=== PATIENT | female | born 1960 | race Caucasian/White ===

== ENCOUNTER 2018-09-28 14:34 | Emergency (ER) | payer BC ==
[2018-09-28] MEDS ORDERED: SODIUM CHLORIDE 0.9% 1,000 ML IV STA ×2 (15:12)
[2018-09-28] MEDS ORDERED: KETOROLAC 30 MG/ML 1 ML VIAL IVP STA (15:12)
--- NOTE | 2018-09-28 15:22 | ED ---
Back Pain HPI - General Chief Complaint: Back Pain/Injury Stated Complaint: Back pain Time Seen by Provider: 09/28/18 14:38 Source: patient, RN notes reviewed, old records reviewed Limitations: no limitations - History of Present Illness Initial Comments: This is a 58-year-old female who presents emergency department today with complaints of right-sided back pain for the past 2 days. Patient reports that she's had no fevers or chills. She does report she's had some nausea. Patient states the pain radiates from her right shoulder towards her neck and mid back. 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 She denies any cough. - Related Data Home Medications Medication Instructions Recorded Confirmed Atorvastatin Calcium [Lipitor] 20 mg PO HS 09/28/18 09/28/18 Dapagliflozin Propanediol [Farxiga] 10 mg PO DAILY 09/28/18 09/28/18 Lisinopril [Zestril] 10 mg PO DAILY 09/28/18 09/28/18 Prolastin C(Unknown Dose) 1 dose IV TH 09/28/18 Venlafaxine HCl ER [Effexor Xr] 75 mg PO DAILY 09/28/18 09/28/18 Xolair(Unknown Dose) 1 dose SQ Q14D 09/28/18 metFORMIN HCL 850 mg PO DAILY 09/28/18 09/28/18 Previous Rx's Medication Instructions Recorded Cyclobenzaprine [Flexeril] 10 mg PO TID #12 tab 09/28/18 Allergies Allergy/AdvReac Type Severity Reaction Status Date / Time No Known Allergies Allergy Verified 09/28/18 16:13 Review of Systems ROS Statement: Those systems with pertinent positive or pertinent negative responses have been documented in the HPI. ROS Other: All systems not noted in ROS Statement are negative. Past Medical History Past Medical History: Diabetes Mellitus, Hypertension Additional Past Medical History / Comment(s): MURMUR History of Any Multi-Drug Resistant Organisms: None Reported Past Surgical History: Appendectomy Past Anesthesia/Blood Transfusion Reactions: No Reported Reaction Past Psychological History: No Psychological Hx Reported Smoking Status: Never smoker Past Alcohol Use History: None Reported Past Drug Use History: None Reported - Past Family History Father Family Medical History: Cancer, Chest Pain / Angina, Hypertension, Prostate Disorder Additional Family Medical History / Comment(s): DAD IS AGE 74 HAS PROSTATE Mother Family Medical History: Diabetes Mellitus, Renal Disease Additional Family Medical History / Comment(s): AGE 74 HAS STAGE 4 KIDNEY DISEASE General Exam - General Exam Comments Initial Comments: Patient is a 58-year-old female. Alert and oriented 3. No significant distress. Limitations: no limitations General appearance: alert, in no apparent distress Head exam: Present: atraumatic, normocephalic, normal inspection Eye exam: Present: normal appearance, PERRL, EOMI. Absent: scleral icterus, conjunctival injection, periorbital swelling ENT exam: Present: normal exam, mucous membranes moist Neck exam: Present: normal inspection Respiratory exam: Present: normal lung sounds bilaterally. Absent: respiratory distress, wheezes, rales, rhonchi, stridor Cardiovascular Exam: Present: regular rate, normal rhythm, normal heart sounds. Absent: systolic murmur, diastolic murmur, rubs, gallop, clicks GI/Abdominal exam: Present: soft, tenderness (minimal epigastric tenderness), normal bowel sounds. Absent: distended, guarding, rebound, rigid Extremities exam: Present: normal inspection, full ROM, normal capillary refill. Absent: tenderness, pedal edema, joint swelling, calf tenderness Back exam: Present: normal inspection, tenderness (Epigastric tenderness to his right upper quadrant.) Neurological exam: Present: alert, oriented X3, CN II-XII intact Psychiatric exam: Present: normal affect, normal mood Skin exam: Present: warm, dry, intact, normal color. Absent: rash Course Vital Signs 09/28/18 09/28/18 09/28/18 14:35 14:56 16:44 Temperature 97.9 F 98.3 F Pulse Rate 75 64 Respiratory 18 16 18 Rate Blood Pressure 154/80 142/83 O2 Sat by Pulse 96 99 Oximetry Medical Decision Making - Medical Decision Making Patient is a 58-year-old female who presents emergency Department with right- sided back pain, chest wall discomfort she describes as pleuritic in nature. Vital signs are stable. She has had history of also 1 trypsin deficiency. She denies any coughing or significant shortness of breath. Pain does seem to be worse with movement. Patient also complains nausea with discuss concern for gallbladder disease. Patient's labwork was reviewed and unremarkable. Patient's lab work showed a normal d-dimer and normal troponin EKG was unre markable. Patient has normal chest x-ray. I discussed the patient's likely muscular skeletal nature at this time. Patient's case discussed with Dr. Keller. Patient will be discharged at this time. Discussed discussed strict return parameters and close PCP follow-up. - Lab Data Result diagrams: 09/28/18 15:30 09/28/18 15:30 Lab Results 09/28/18 09/28/18 09/28/18 Range/Units 15:00 15:30 15:30 WBC 9.7 (3.8-10.6) k/uL RBC 5.02 (3.80-5.40) m/uL Hgb 14.3 (11.4-16.0) gm/dL Hct 43.1 (34.0-46.0) % MCV 85.8 (80.0-100.0) fL MCH 28.6 (25.0-35.0) pg MCHC 33.3 (31.0-37.0) g/dL RDW 13.5 (11.5-15.5) % Plt Count 269 (150-450) k/uL Neutrophils % 56 % Lymphocytes % 35 % Monocytes % 5 % Eosinophils % 2 % Basophils % 1 % Neutrophils # 5.4 (1.3-7.7) k/uL Lymphocytes # 3.4 (1.0-4.8) k/uL Monocytes # 0.5 (0-1.0) k/uL Eosinophils # 0.2 (0-0.7) k/uL Basophils # 0.1 (0-0.2) k/uL PT (9.0-12.0) sec INR (<1.2) APTT (22.0-30.0) sec D-Dimer (<0.60) mg/L FEU Sodium 139 (137-145) mmol/L Potassium 3.6 (3.5-5.1) mmol/L Chloride 104 (98-107) mmol/L Carbon Dioxide 25 (22-30) mmol/L Anion Gap 10 mmol/L BUN 14 (7-17) mg/dL Creatinine 0.51 L (0.52-1.04) mg/dL Est GFR (CKD-EPI)AfAm >90 (>60 ml/min/1.73 sqM) Est GFR (CKD-EPI)NonAf >90 (>60 ml/min/1.73 sqM) Glucose 227 H (74-99) mg/dL Calcium 9.5 (8.4-10.2) mg/dL Magnesium 2.0 (1.6-2.3) mg/dL Total Bilirubin 0.3 (0.2-1.3) mg/dL AST 23 (14-36) U/L ALT 30 (9-52) U/L Alkaline Phosphatase 107 (38-126) U/L Troponin I (0.000-0.034) ng/mL Total Protein 6.7 (6.3-8.2) g/dL Albumin 3.8 (3.5-5.0) g/dL Urine Color Light Yellow Urine Appearance Clear (Clear) Urine pH 5.0 (5.0-8.0) Ur Specific Norman 1.039 H (1.001-1.035) Urine Protein Negative (Negative) Urine Glucose (UA) 4+ H (Negative) Urine Ketones Negative (Negative) Urine Blood Negative (Negative) Urine Nitrite Negative (Negative) Urine Bilirubin Negative (Negative) Urine Urobilinogen <2.0 (<2.0) mg/dL Ur Leukocyte Esterase Negative (Negative) 09/28/18 09/28/18 Range/Units 15:30 15:30 WBC (3.8-10.6) k/uL RBC (3.80-5.40) m/uL Hgb (11.4-16.0) gm/dL Hct (34.0-46.0) % MCV (80.0-100.0) fL MCH (25.0-35.0) pg MCHC (31.0-37.0) g/dL RDW (11.5-15.5) % Plt Count (150-450) k/uL Neutrophils % % Lymphocytes % % Monocytes % % Eosinophils % % Basophils % % Neutrophils # (1.3-7.7) k/uL Lymphocytes # (1.0-4.8) k/uL Monocytes # (0-1.0) k/uL Eosinophils # (0-0.7) k/uL Basophils # (0-0.2) k/uL PT 10.4 (9.0-12.0) sec INR 1.0 (<1.2) APTT 23.5 (22.0-30.0) sec D-Dimer 0.28 (<0.60) mg/L FEU Sodium (137-145) mmol/L Potassium (3.5-5.1) mmol/L Chloride (98-107) mmol/L Carbon Dioxide (22-30) mmol/L Anion Gap mmol/L BUN (7-17) mg/dL Creatinine (0.52-1.04) mg/dL Est GFR (CKD-EPI)AfAm (>60 ml/min/1.73 sqM) Est GFR (CKD-EPI)NonAf (>60 ml/min/1.73 sqM) Glucose (74-99) mg/dL Calcium (8.4-10.2) mg/dL Magnesium (1.6-2.3) mg/dL Total Bilirubin (0.2-1.3) mg/dL AST (14-36) U/L ALT (9-52) U/L Alkaline Phosphatase (38-126) U/L Troponin I <0.012 (0.000-0.034) ng/mL Total Protein (6.3-8.2) g/dL Albumin (3.5-5.0) g/dL Urine Color Urine Appearance (Clear) Urine pH (5.0-8.0) Ur Specific Norman (1.001-1.035) Urine Protein (Negative) Urine Glucose (UA) (Negative) Urine Ketones (Negative) Urine Blood (Negative) Urine Nitrite (Negative) Urine Bilirubin (Negative) Urine Urobilinogen (<2.0) mg/dL Ur Leukocyte Esterase (Negative) EKG performed at 1541 shows normal sinus rhythm normal EKG. Ventricular rate of up is per minute. [place] interval is 1:30 milliseconds. QRS duration is 94 ms. QT QTC 418 ms. No evidence of ST elevation. 09/28/18 16:01 - Radiology Data Radiology results: report reviewed Chest x-ray is negative for any acute cardio primary process. No change from prior. Disposition Clinical Impression: Right-sided back pain, Pleurisy Disposition: HOME SELF-CARE Condition: Good Instructions (If sedation given, give patient instructions): Pleurisy (ED) Additional Instructions: Patient advised to a take Motrin Tylenol for pain. He continues muscle relaxers prescribed as well. Return to the emergency department if any alarming signs or symptoms occur. Prescriptions: Cyclobenzaprine [Flexeril] 10 mg PO TID #12 tab Is patient prescribed a controlled substance at d/c from ED?: No Referrals: Stephany Kaur MD [Primary Care Provider] - 1-2 days Time of Disposition: 16:56
[2018-09-28 15:41] LABS: Basophils # (A) 0.1 k/uL (0-0.2); Basophils % (A) 1 %; Eosinophils # (A) 0.2 k/uL (0-0.7); Eosinophils % (A) 2 %; HCT 43.1 % (34.0-46.0); HGB 14.3 gm/dL (11.4-16.0); Lymphocytes # (A) 3.4 k/uL (1.0-4.8); Lymphocytes % (A) 35 %; MCH 28.6 pg (25.0-35.0); MCHC 33.3 g/dL (31.0-37.0); MCV 85.8 fL (80.0-100.0); Monocytes # (A) 0.5 k/uL (0-1.0); Monocytes % (A) 5 %; Neutrophils # (A) 5.4 k/uL (1.3-7.7); Neutrophils % (A) 56 %; Platelet Count 269 k/uL (150-450); RBC 5.02 m/uL (3.80-5.40); RDW 13.5 % (11.5-15.5); WBC 9.7 k/uL (3.8-10.6)
[2018-09-28 15:50] LABS: Appearance,Urine Clear (Clear); Bilirubin,Urine Negative (Negative); Blood,Urine Negative (Negative); Color,Urine Light Yellow; Glucose,Urine (UA) 4+ (Negative); Ketones,Urine Negative (Negative); Leukocyte Esterase,Urine Negative (Negative); Nitrite,Urine Negative (Negative); Protein,Urine Negative (Negative); Specific Gravity,Urine 1.039 (1.001-1.035); Urobilinogen,Urine <2.0 mg/dL (<2.0)
--- NOTE | 2018-09-28 15:52 | XR ---
EXAMINATION TYPE: XR chest 2V DATE OF EXAM: 09/28/2018 COMPARISON: Chest x-ray December 22, 2013 HISTORY: Chest and back pain. TECHNIQUE: Frontal and lateral views of the chest are obtained. FINDINGS: Overlying EKG leads are present. There is no focal air space opacity, pleural effusion, or pneumothorax seen. The cardiac silhouette size is within normal limits. Multilevel spurring of thora cic spine is redemonstrated. IMPRESSION: No acute cardiopulmonary process. No significant change from prior.
[2018-09-28 15:53] LABS: ALT 30 U/L (9-52); AST 23 U/L (14-36); African American GFR (CKD) >90 (>60 ml/min/1.73 sqM); Albumin 3.8 g/dL (3.5-5.0); Alkaline Phosphatase 107 U/L (38-126); Anion Gap 10 mmol/L; Blood Urea Nitrogen 14 mg/dL (7-17); Calcium 9.5 mg/dL (8.4-10.2); Carbon Dioxide 25 mmol/L (22-30); Chloride 104 mmol/L (98-107); D-Dimer 0.28 mg/L FEU (<0.60); Glucose 227 mg/dL (74-99); Sodium 139 mmol/L (137-145); Total Bilirubin 0.3 mg/dL (0.2-1.3); Total Protein 6.7 g/dL (6.3-8.2)
[2018-09-28 15:54] LABS: Partial Thromboplastin Time 23.5 sec (22.0-30.0); Prothrombin Time 10.4 sec (9.0-12.0)
[2018-09-28 16:07] LABS: Potassium 3.6 mmol/L (3.5-5.1)
[2018-09-28 16:45] VITALS: BP 142/83; PULSE 64; RESP 18; TEMP 98.3
== END 2018-09-28 17:07 | disposition home or self-care (01) ==
LOC: EC 14:34
DX: M54.9 Dorsalgia, unspecified (principal); R09.1 Pleurisy; R11.0 Nausea; R10.816 Epigastric abdominal tenderness; R10.811 Right upper quadrant abdominal tenderness; E11.9 Type 2 diabetes mellitus without complications; I10 Essential (primary) hypertension; Z79.84 Long term (current) use of oral hypoglycemic drugs; Z79.899 Other long term (current) drug therapy
CPT/HCPCS: 36415; 93005; 85379; 80053; 83735; 84484; 85025; 85610; 85730; 81003; 71046; 99284; 96374; 96361; J1885

== ENCOUNTER → 2019-02-22 | Outpatient (CLI) | payer BC ==
--- NOTE | 2019-02-25 10:46 | MM ---
Reason for exam: screening (asymptomatic). Last mammogram was performed 5 years and 7 months ago. History: Patient is postmenopausal. Family history of breast cancer in maternal aunt at age 45. Physical Findings: A clinical breast exam by your physician is recommended on an annual basis and results should be correlated with mammographic findings. MG Screening Mammo w CAD Bilateral CC, MLO, and XCCL view(s) were taken. Prior study comparison: July 16, 2013, bilateral MG screening mammo w CAD. June 15, 2012, bilateral digital screening mammo w/CAD. The breast tissue is heterogeneously dense. This may lower the sensitivity of mammography. There are benign appearing round dystrophic calcifications bilaterally. New group of indeterminate calcifications left inner lower quadrant. Nodularity in the left breast. Focal asymmetry right outer middle depth. ASSESSMENT: Incomplete: need additional imaging evaluation, BI-RAD 0 RECOMMENDATION: Special view mammogram of both breasts. If lesion persists on supplemental views, image directed ultrasound is recommended. [facility] will attempt to contact patient to return for supplemental views and ultrasound if indicated.
== END | disposition home or self-care (01) ==
LOC: RADMAMWWP 15:40
PROVIDERS: ATTEND Internal Medicine
DX: Z12.31 Encounter for screening mammogram for malignant neoplasm of breast (principal)
CPT/HCPCS: 77067

== ENCOUNTER → 2019-03-15 | Outpatient (CLI) | payer BC ==
--- NOTE | 2019-03-16 10:02 | MM ---
Reason for exam: additional evaluation requested from abnormal screening. Last mammogram was performed 1 month ago. History: Patient is postmenopausal. Family history of breast cancer in maternal aunt at age 45. Physical Findings: Nurse Summary: 1cm nodule in the right breast at 3 o'clock (nurse TM). MG Work Up Mamm w CAD BILAT Bilateral spot compression CC and ML view(s) were taken. Spot compression MLO, CC with magnification, and MLO with magnification view(s) were taken of the left breast. Prior study comparison: February 22, 2019, bilateral MG screening mammo w CAD. July 16, 2013, bilateral MG screening mammo w CAD. The breast tissue is heterogeneously dense. This may lower the sensitivity of mammography. Right: no persistent nodule. Left: no suspicious calcifications. Left inner lower 7 o'clock 9.6cm from nipple and 12 'clock 6cm from nipple. These results were verbally communicated with the patient and result sheet given to the patient on 03/15/19. ASSESSMENT: Incomplete: need additional imaging evaluation, BI-RAD 0 RECOMMENDATION: Ultrasound of both breasts. Manage patient on a clinical basis.
--- NOTE | 2019-03-16 10:04 | USB ---
Reason for exam: additional evaluation requested from abnormal screening. History: Patient is postmenopausal. Family history of breast cancer in maternal aunt at age 45. US Breast Workup Limited SARBJIT Left limited breast ultrasound including focal area of concern, retroareolar and axilla demonstrates a 0.4 x 0.3 x 0.5cm round, hypoechoic lesion at 7 o'clock, 6 month follow up. These results were verbally communicated with the patient and result sheet given to the patient on 03/15/19. ASSESSMENT: Probably benign, BI-RAD 3 RECOMMENDATION: Ultrasound of the left breast in 6 months.
== END | disposition home or self-care (01) ==
LOC: RADMAMWWP 13:26
PROVIDERS: ATTEND Internal Medicine
DX: R92.8 Other abnormal and inconclusive findings on diagnostic imaging of breast (principal)
CPT/HCPCS: 77066

== ENCOUNTER → 2019-09-23 | Outpatient (CLI) | payer BC ==
--- NOTE | 2019-09-24 10:02 | USB ---
Reason for exam: follow-up at short interval from prior study. History: Patient is postmenopausal. Family history of breast cancer in maternal aunt at age 45. Physical Findings: Nurse did not find any significant physical abnormalities on exam. US Breast Limited LT Left limited breast ultrasound including focal area of concern, retroareolar and axilla demonstrates a 0.4 x 0.4 x 0.4cm round, hypoechoic lesion at 7 o'clock. These results were verbally communicated with the patient and result sheet given to the patient on 09/23/19. ASSESSMENT: Probably benign, BI-RAD 3 RECOMMENDATION: Follow-up diagnostic mammogram of both breasts in 5 months. Back on schedule for January 2020. Ultrasound of the left breast in 5 months.
== END | disposition home or self-care (01) ==
LOC: RADUSWWP 08:16
PROVIDERS: ATTEND Internal Medicine
DX: R92.8 Other abnormal and inconclusive findings on diagnostic imaging of breast (principal)

== ENCOUNTER → 2020-02-22 | Outpatient (CLI) | payer BC ==
--- NOTE | 2020-02-22 08:53 | MM ---
Reason for exam: follow-up at short interval from prior study. Last mammogram was performed 11 months ago. History: Patient is postmenopausal. Family history of breast cancer in maternal aunt at age 45. Physical Findings: Nurse did not find any significant physical abnormalities on exam. MG 3D Diag Mammo W/Cad SARBJIT Bilateral CC and MLO view(s) were taken. Prior study comparison: March 15, 2019, bilateral MG work up mamm w CAD BILAT. February 22, 2019, bilateral MG screening mammo w CAD. The breast tissue is heterogeneously dense. This may lower the sensitivity of mammography. Finding: There are stable, course grouped/clustered calcifications in both breasts. No significant changes in finding since February 22, 2019. These results were verbally communicated with the patient and result sheet given to the patient on 02/22/20. ASSESSMENT: Benign, BI-RAD 2 RECOMMENDATION: Routine screening mammogram of both breasts in 1 year.
--- NOTE | 2020-02-22 08:55 | USB ---
Reason for exam: follow-up at short interval from prior study. History: Patient is postmenopausal. Family history of breast cancer in maternal aunt at age 45. US Breast Limited LT Left limited breast ultrasound including focal area of concern, retroareolar and axilla demonstrates a 0.4 x 0.4 x 0.4cm oval, complex, cystic lesion at 7 o'clock correlates with prior 7 o'clock and a 0.6 x 0.7 x 0.4cm oval, hyperechoic, solid lipoma at 9 o'clock. These results were verbally communicated with the patient and result sheet given to the patient on 02/22/20. ASSESSMENT: Benign, BI-RAD 2 RECOMMENDATION: Routine screening mammogram of both breasts in 1 year.
== END | disposition home or self-care (01) ==
LOC: RADMAMWWP 06:56
PROVIDERS: ATTEND Internal Medicine
DX: R92.8 Other abnormal and inconclusive findings on diagnostic imaging of breast (principal)
CPT/HCPCS: 77062; 77066

== ENCOUNTER → 2022-03-14 | Outpatient (CLI) | payer BC ==
--- NOTE | 2022-03-17 18:29 | MM ---
Reason for Exam: Screening (asymptomatic). Last screening mammogram was performed 12 month(s) ago. Patient History: Menarche at age 11. First Full-Term at age 20. Postmenopausal. Maternal aunt had breast cancer, age 45. Risk Values: Kyra 5 year model risk: 1.4%. NCI Lifetime model risk: 6.2%. Prior Study Comparison: 03/15/2019 Bilateral Diagnostic Mammogram, [facility]. 02/22/2020 Bilateral Diagnostic Mammogram, [facility]. 02/28/2021 Bilateral Screening Mammogram, [facility]. Tissue Density: The breast tissue is heterogeneously dense. This may lower the sensitivity of mammography. Findings: Analyzed By CAD. There is heterogeneous calcifications are unchanged on both sides. Areas of asymmetric density are also unchanged. There is no suspicious group of microcalcifications or new suspicious mass in either breast. Overall Assessment: Benign, BI-RAD 2 Management: Screening Mammogram of both breasts in 1 year. 1. Patient should continue monthly self breast exams. 2. A clinical breast exam by your physician is recommended on an annual basis. 3. This exam should not preclude additional follow-up of suspicious palpable abnormalities. Electronically signed and approved by: Hal Gill M.D. Radiologist
== END | disposition home or self-care (01) ==
LOC: RADMAMWWP 15:05
PROVIDERS: ATTEND Internal Medicine
DX: Z12.31 Encounter for screening mammogram for malignant neoplasm of breast (principal); Z80.3 Family history of malignant neoplasm of breast; Z78.0 Asymptomatic menopausal state
CPT/HCPCS: 77063; 77067

== ENCOUNTER 2023-02-21 18:21 | Inpatient (IN) | payer BC, OTHER ==
[2023-02-21] MEDS ORDERED: SODIUM CHLORIDE 0.9% 1,000 ML IV STA (18:50)
[2023-02-21] MEDS ORDERED: HYDROmorphone 1 MG/ML 1 ML SYRINGE IVP STA ×2 (18:51→19:24)
--- NOTE | 2023-02-21 18:51 | ED ---
Fall HPI - General Chief Complaint: Fall Stated Complaint: Fall, left hip pain Time Seen by Provider: 02/21/23 18:47 Source: EMS, RN notes reviewed, old records reviewed Mode of arrival: EMS Limitations: no limitations - History of Present Illness Initial Comments: This is a 62-year-old female to the emergency department for evaluation. Patient resents emergency department for evaluation regards to fall fall from diabetes high blood pressure patient's severe left hip fracture. 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, by family Place Fall Occurred: home Loss of Consciousness: none Prolonged Down Time?: no Symptoms Prior to Fall: none Severity: moderate Severity scale (1-10): 4 Quality: burning Context: tripped/slipped Associated Symptoms: denies - Related Data Home Medications Medication Instructions Recorded Confirmed Albuterol Inhaler [Ventolin Hfa 1 - 2 puff INHALATION RT-Q6H PRN 02/21/23 02/21/23 Inhaler] EPINEPHrine (Auto Inject) [Epipen] 0.3 mg IM ONCE PRN 02/21/23 02/21/23 Escitalopram [Lexapro] 10 mg PO DAILY 02/21/23 02/21/23 Omalizumab [Xolair] 75 mg SQ Q14D 02/21/23 02/21/23 Omalizumab [Xolair] 150 mg SQ Q14D 02/21/23 02/21/23 Pioglitazone [Actos] 45 mg PO DAILY 02/21/23 02/21/23 Prolastin-C 1,000 Mg (+-)/20 Ml 1 dose IV WE 02/21/23 02/21/23 Solution Tirzepatide [Mounjaro] 7.5 mg SQ RAE 02/21/23 02/21/23 Previous Rx's Medication Instructions Recorded Aspirin [Adult Low Dose Aspirin EC] 81 mg PO BID #1 tab 02/24/23 HYDROcodone/APAP 7.5-325MG [[place] 1 - 2 tab PO Q6HR PRN #32 tab 02/24/23 7.5-325] Sennosides-Docusate Sodium 1 tab PO BID #60 tablet 02/24/23 [Senokot-S] diazePAM [Valium] 2 mg PO Q8HR PRN #12 tab 02/24/23 Allergies Allergy/AdvReac Type Severity Reaction Status Date / Time No Known Allergies Allergy Verified 02/22/23 13:16 Review of Systems ROS Statement: Those systems with pertinent positive or pertinent negative responses have been documented in the HPI. ROS Other: All systems not noted in ROS Statement are negative. Past Medical History Past Medical History: Diabetes Mellitus, Hypertension Additional Past Medical History / Comment(s): MURMUR, alpha 1 anti tripsid History of Any Multi-Drug Resistant Organisms: None Reported Past Surgical History: Appendectomy Past Anesthesia/Blood Transfusion Reactions: No Reported Reaction Past Psychological History: No Psychological Hx Reported Smoking Status: Never smoker Past Alcohol Use History: Rare Past Drug Use History: None Reported - Past Family History Father Family Medical History: Cancer, Chest Pain / Angina, Hypertension, Prostate Disorder Additional Family Medical History / Comment(s): DAD IS AGE 74 HAS PROSTATE Mother Family Medical History: Diabetes Mellitus, Renal Disease Additional Family Medical History / Comment(s): AGE 74 HAS STAGE 4 KIDNEY DISEASE General Exam Limitations: no limitations General appearance: alert, anxious, in distress, obese Head exam: Present: atraumatic, normocephalic, normal inspection Eye exam: Present: normal appearance, PERRL, EOMI. Absent: scleral icterus, conjunctival injection, periorbital swelling ENT exam: Present: normal exam, mucous membranes moist Neck exam: Present: normal inspection. Absent: tenderness, meningismus, lymphadenopathy Respiratory exam: Present: normal lung sounds bilaterally. Absent: respiratory distress, wheezes, rales, rhonchi, stridor Cardiovascular Exam: Present: regular rate, normal rhythm, normal heart sounds. Absent: systolic murmur, diastolic murmur, rubs, gallop, clicks GI/Abdominal exam: Present: soft, normal bowel sounds. Absent: distended, tenderness, guarding, rebound, rigid Extremities exam: Present: tenderness, normal capillary refill. Absent: full ROM, pedal edema, joint swelling, calf tenderness Back exam: Present: normal inspection, tenderness Neurological exam: Present: alert, oriented X3, CN II-XII intact Psychiatric exam: Present: normal affect, normal mood Skin exam: Present: warm, dry, intact, normal color. Absent: rash Course Vital Signs 02/21/23 02/21/23 02/21/23 18:37 19:00 20:00 Temperature 98.3 F Pulse Rate 65 68 Respiratory 18 15 16 Rate Blood Pressure 137/68 132/50 133/44 O2 Sat by Pulse 97 99 99 Oximetry 02/21/23 02/21/23 02/21/23 20:43 21:30 22:13 Temperature 98.3 F Pulse Rate 64 65 65 Respiratory 16 18 12 Rate Blood Pressure 131/47 127/74 114/56 O2 Sat by Pulse 98 99 99 Oximetry - Reevaluation(s) Reevaluation #1: 02/21/23 21:38 Medical records are reviewed Reevaluation #2: 02/21/23 21:38 Patient is in severe pain here in the emergency department Reevaluation #3: 02/21/23 21:38 Patient family informed of results and questions answered Reevaluation #4: 02/21/23 21:38 Was pt. sent in by a medical professional or institution (, PA, RN LACTATION CONSULTANT, urgent care, hospital, or group home...) When possible be specific @ -no Did you speak to anyone other than the patient for history (EMS, parent, family, police, friend...)? What history was obtained from this source @ -no Did you review nursing and triage notes (agree or disagree)? Why? @ -agree Are old charts reviewed (outside hosp., previous admission, EMS record, old EKG, old radiological studies, urgent care reports/EKG's, group home records)? Report findings @ -yes Differential Diagnosis (chest pain, altered mental status, abdominal pain women, abdominal pain men, vaginal bleeding, weakness, fever, dyspnea, syncope, headache, dizziness, GI bleed, back pain, seizure, CVA, palpatations, mental health, musculoskeletal)? @ -prior EKG interpreted by me (3pts min.). @ -yes X-rays interpreted by me (1pt min.). @ -yes positive for hip fracture CT interpreted by me (1pt min.). @ -no U/S interpreted by me (1pt. min.). @ -no What testing was considered but not performed or refused? (CT, X-rays, U/S, labs)? Why? @ -none What meds were considered but not given or refused? Why? @ -none Did you discuss the management of the patient with other professionals (professionals i.e. , PA, RN LACTATION CONSULTANT, lab, RT, psych nurse, social sciences department chair, yard motor operator, teacher, credit risk officer, lining caser)? Give summary @ -no Was smoking cessation discussed for >3mins.? @ -no Was critical care preformed (if so, how long)? @ -no Were there social determinants of health that impacted care today? How? (Home lessness, low income, unemployed, alcoholism, drug addiction, transportation, low edu. Level, literacy, decrease access to med. care, [facility], rehab)? @ -none Was there de-escalation of care discussed even if they declined (Discuss DNR or withdrawal of care, Hospice)? DNR status @ -no What co-morbidities impacted this encounter? (DM, HTN, Smoking, COPD, CAD, Cancer, CVA, ARF, Chemo, Hep., AIDS, mental health diagnosis, sleep apnea, morbid obesity)? @ -none Was patient admitted / discharged? Hospital course, mention meds given and route, prescriptions, significant lab abnormalities, going to OR and other pertinent info. @ - 62 female to the emergency department for evaluation of a fall with hip fracture. Patient be admitted for surgical evaluation Admitted Undiagnosed new problem with uncertain prognosis? @ -no Drug Therapy requiring intensive monitoring for toxicity (Heparin, Nitro, I nsulin, Cardizem)? @ -no Were any procedures done? @ -no Diagnosis/symptom? @ -Hip fracture and fall Acute, or Chronic, or Acute on Chronic? @ -Acute Uncomplicated (without systemic symptoms) or Complicated (systemic symptoms)? @ -Complicated Side effects of treatment? @ -no Exacerbation, Progression, or Severe Exacerbation? @ -exacerbation Poses a threat to life or bodily function? How? (Chest pain, [place], VA, pneumonia, PE, COPD, DKA, ARF, appy, cholecystitis, CVA, Diverticulitis, Homicidal, Suicidal, threat to staff... and all critical care pts) @ -yes need for surgery for hip fracture with fall - Consultations Consultation #1: Spoke with Dr. Sagastume orthopedics who will see patient Medical Decision Making - Medical Decision Making 62 female to the emergency department for evaluation of a fall with hip fracture. Patient be admitted for surgical evaluation - Lab Data Result diagrams: 02/24/23 16:31 02/21/23 20:16 Lab Results 02/21/23 02/21/23 02/21/23 Range/Units 18:54 18:54 18:54 WBC 11.3 H (3.8-10.6) k/uL RBC 4.45 (3.80-5.40) m/uL Hgb 13.5 (11.4-16.0) gm/dL Hct 39.2 (34.0-46.0) % MCV 88.2 (80.0-100.0) fL MCH 30.3 (25.0-35.0) pg MCHC 34.4 (31.0-37.0) g/dL RDW 13.7 (11.5-15.5) % Plt Count 216 (150-450) k/uL MPV 8.0 Neutrophils % 81 % Lymphocytes % 14 % Monocytes % 4 % Eosinophils % 0 % Basophils % 0 % Neutrophils # 9.2 H (1.3-7.7) k/uL Lymphocytes # 1.6 (1.0-4.8) k/uL Monocytes # 0.4 (0-1.0) k/uL Eosinophils # 0.0 (0-0.7) k/uL Basophils # 0.0 (0-0.2) k/uL PT 11.2 (10.0-12.5) sec INR 1.0 (<1.2) APTT 21.1 L (22.0-30.0) sec Sodium (137-145) mmol/L Potassium (3.5-5.1) mmol/L Chloride (98-107) mmol/L Carbon Dioxide (22-30) mmol/L Anion Gap mmol/L BUN (7-17) mg/dL Creatinine (0.52-1.04) mg/dL Est GFR (CKD-EPI)AfAm (>60 ml/min/1.73 sqM) Est GFR (CKD-EPI)NonAf (>60 ml/min/1.73 sqM) Glucose (74-99) mg/dL Calcium (8.4-10.2) mg/dL Phosphorus (2.5-4.5) mg/dL Magnesium (1.6-2.3) mg/dL Total Bilirubin (0.2-1.3) mg/dL AST (14-36) U/L ALT (4-34) U/L Alkaline Phosphatase (38-126) U/L Troponin I <0.012 (0.000-0.034) ng/mL Total Protein (6.3-8.2) g/dL Albumin (3.5-5.0) g/dL 02/21/23 Range/Units 20:16 WBC (3.8-10.6) k/uL RBC (3.80-5.40) m/uL Hgb (11.4-16.0) gm/dL Hct (34.0-46.0) % MCV (80.0-100.0) fL MCH (25.0-35.0) pg MCHC (31.0-37.0) g/dL RDW (11.5-15.5) % Plt Count (150-450) k/uL MPV Neutrophils % % Lymphocytes % % Monocytes % % Eosinophils % % Basophils % % Neutrophils # (1.3-7.7) k/uL Lymphocytes # (1.0-4.8) k/uL Monocytes # (0-1.0) k/uL Eosinophils # (0-0.7) k/uL Basophils # (0-0.2) k/uL PT (10.0-12.5) sec INR (<1.2) APTT (22.0-30.0) sec Sodium 140 (137-145) mmol/L Potassium 3.6 (3.5-5.1) mmol/L Chloride 104 (98-107) mmol/L Carbon Dioxide 25 (22-30) mmol/L Anion Gap 11 mmol/L BUN 17 (7-17) mg/dL Creatinine 0.58 (0.52-1.04) mg/dL Est GFR (CKD-EPI)AfAm >90 (>60 ml/min/1.73 sqM) Est GFR (CKD-EPI)NonAf >90 (>60 ml/min/1.73 sqM) Glucose 177 H (74-99) mg/dL Calcium 8.7 (8.4-10.2) mg/dL Phosphorus 3.3 (2.5-4.5) mg/dL Magnesium 1.8 (1.6-2.3) mg/dL Total Bilirubin 0.5 (0.2-1.3) mg/dL AST 35 (14-36) U/L ALT 22 (4-34) U/L Alkaline Phosphatase 104 (38-126) U/L Troponin I (0.000-0.034) ng/mL Total Protein 6.8 (6.3-8.2) g/dL Albumin 3.7 (3.5-5.0) g/dL - EKG Data -: EKG Interpreted by Me (EKG is sinus 66 NH 162 QRS 96 QTc 431) - Radiology Data Radiology results: report reviewed (Chest x-ray x-ray pelvis positive left hip fracture), image reviewed Disposition Clinical Impression: Fall, Closed left hip fracture Disposition: ADMITTED IP TO THIS HOSP Condition: Stable Is patient prescribed a controlled substance at d/c from ED?: No Time of Disposition: 21:30
--- NOTE | 2023-02-21 20:15 | XR ---
EXAMINATION TYPE: XR Hip LT and AP Pelvis DATE OF EXAM: 02/21/2023 7:53 PM CLINICAL INDICATION:Female, 62 years old with history of fall; COMPARISON: None. TECHNIQUE: XR Hip LT and AP Pelvis; hip was examined in the frontal and lateral projections and a AP pelvis. FINDINGS/IMPRESSION: Comminuted left femur intertrochanteric fracture with displacement. No additional fractures visualize d.
--- NOTE | 2023-02-21 20:15 | XR ---
EXAMINATION TYPE: XR chest 1V DATE OF EXAM: 02/21/2023 7:53 PM CLINICAL INDICATION:Female, 62 years old with history of fall; H COMPARISON: Chest radiographs from TECHNIQUE: XR chest 1V Frontal view of the chest. FINDINGS: Lungs/Pleura: There is no evidence of pleural effusion, focal consolidation, or pneumothorax. Pulmonary vascularity: Unremarkable. Heart/mediastinum: Cardiomediastinal silhouette is unremarkable. Musculoskeletal: No acute osseous pathology. Other findings: None IMPRESSION: No acute cardiopulmonary disease/process.
[2023-02-21 20:39] LABS: Prothrombin Time 11.2 sec (10.0-12.5)
[2023-02-21 20:50] LABS: Partial Thromboplastin Time 21.1 sec (22.0-30.0)
[2023-02-21 21:29] LABS: Basophils % (A) 0 %; Eosinophils % (A) 0 %; HCT 39.2 % (34.0-46.0); HGB 13.5 gm/dL (11.4-16.0); Lymphocytes # (A) 1.6 k/uL (1.0-4.8); Lymphocytes % (A) 14 %; MCH 30.3 pg (25.0-35.0); MCHC 34.4 g/dL (31.0-37.0); MCV 88.2 fL (80.0-100.0); Monocytes # (A) 0.4 k/uL (0-1.0); Monocytes % (A) 4 %; Neutrophils # (A) 9.2 k/uL (1.3-7.7); Neutrophils % (A) 81 %; Platelet Count 216 k/uL (150-450); RBC 4.45 m/uL (3.80-5.40); RDW 13.7 % (11.5-15.5); WBC 11.3 k/uL (3.8-10.6)
[2023-02-21] MEDS ORDERED: ONDANSETRON 4 MG/2 ML VIAL IVP PRN (21:34)
[2023-02-21] MEDS ORDERED: NALOXONE 0.4 MG/ML 1 ML VIAL IV PRN (21:34)
[2023-02-21] MEDS: SODIUM CHLORIDE 0.9% 1,000 ML IV SCH (22:03)
[2023-02-21 22:28] LABS: ALT 22 U/L (4-34); AST 35 U/L (14-36); African American GFR (CKD) >90 (>60 ml/min/1.73 sqM); Albumin 3.7 g/dL (3.5-5.0); Alkaline Phosphatase 104 U/L (38-126); Anion Gap 11 mmol/L; Blood Urea Nitrogen 17 mg/dL (7-17); Calcium 8.7 mg/dL (8.4-10.2); Carbon Dioxide 25 mmol/L (22-30); Chloride 104 mmol/L (98-107); Glucose 177 mg/dL (74-99); Magnesium 1.8 mg/dL (1.6-2.3); Non-African American GFR(CKD) >90 (>60 ml/min/1.73 sqM); Phosphorus 3.3 mg/dL (2.5-4.5); Potassium 3.6 mmol/L (3.5-5.1); Sodium 140 mmol/L (137-145); Total Bilirubin 0.5 mg/dL (0.2-1.3); Total Protein 6.8 g/dL (6.3-8.2)
[2023-02-21] MEDS ORDERED: ALBUTEROL NEBULIZED 2.5 MG/3 ML INHALATION PRN (23:49)
[2023-02-21] MEDS ORDERED: NON FORMULARY DRUG (Epinephrine (Auto Inject) 0.3 MG/0.3 ML Each) IM PRN (23:49)
[2023-02-21] MEDS ORDERED: DEXTROSE 50% SYRINGE 50 ML IVP PRN ×2 (23:50)
[2023-02-22] MEDS: HYDROmorphone 1 MG/ML 1 ML SYRINGE IVP PRN ×5 (01:11→12:30)
[2023-02-22 05:44] LABS: Glucose,Whole Blood 122 mg/dL (70-110)
[2023-02-22] MEDS: INSULIN ASPART (NovoLOG) 100 UNIT/ML VIAL SQ SCH ×4 (05:57→21:09)
[2023-02-22] MEDS: PANTOPRAZOLE 40 MG TABLET PO SCH (08:21)
[2023-02-22] MEDS: PIOGLITAZONE 45 MG TAB PO SCH (08:21)
[2023-02-22] MEDS: LOSARTAN-HCTZ 50-12.5 MG 1 EACH TAB PO SCH (08:22)
[2023-02-22] MEDS: ESCITALOPRAM 10 MG TAB PO SCH (08:22)
--- NOTE | 2023-02-22 09:53 | P.CNOR ---
History of Present Illness - HPI Consult date: 02/22/23 Consult reason: fracture (Left hip) History of present illness: This is a 62-year-old female who slipped by the pool at the [facility] yesterday and sustained injury to her left hip. She was brought to the e mergency department via EMS. On exam and x-ray in the emergency department she is found to have an intertrochanteric fracture of the left hip. She is admitted to our service for surgical intervention and care. She has medical history significant for diabetes and alpha 1 antitrypsin deficiency. She reports no head injury at the time of her fall. She denies headache or neck pain. She denies injury to her upper extremities. Past Medical History Past Medical History: Diabetes Mellitus, Hypertension Additional Past Medical History / Comment(s): MURMUR, alpha 1 anti tripsid History of Any Multi-Drug Resistant Organisms: None Reported Past Surgical History: Appendectomy Past Anesthesia/Blood Transfusion Reactions: No Reported Reaction Past Psychological History: No Psychological Hx Reported Smoking Status: Never smoker Past Alcohol Use History: Rare Past Drug Use History: None Reported - Past Family History Father Family Medical History: Cancer, Chest Pain / Angina, Hypertension, Prostate D isorder Additional Family Medical History / Comment(s): DAD IS AGE 74 HAS PROSTATE Mother Family Medical History: Diabetes Mellitus, Renal Disease Additional Family Medical History / Comment(s): AGE 74 HAS STAGE 4 KIDNEY DISEASE Medications and Allergies Home Medications Medication Instructions Recorded Confirmed Type Albuterol Inhaler [Ventolin Hfa 1 - 2 puff INHALATION RT-Q6H PRN 02/21/23 02/21/23 History Inhaler] EPINEPHrine (Auto Inject) [Epipen] 0.3 mg IM ONCE PRN 02/21/23 02/21/23 History Escitalopram [Lexapro] 10 mg PO DAILY 02/21/23 02/21/23 History Losartan-Hctz 50-12.5 mg [Hyzaar 1 tab PO DAILY 02/21/23 02/21/23 History 50-12.5] Omalizumab [Xolair] 75 mg SQ Q14D 02/21/23 02/21/23 History Omalizumab [Xolair] 150 mg SQ Q14D 02/21/23 02/21/23 History Pioglitazone [Actos] 45 mg PO DAILY 02/21/23 02/21/23 History Prolastin-C 1,000 Mg (+-)/20 Ml 1 dose IV WE 02/21/23 02/21/23 History Solution Tirzepatide [Mounjaro] 7.5 mg SQ RAE 02/21/23 02/21/23 History Allergies Allergy/AdvReac Type Severity Reaction Status Date / Time No Known Allergies Allergy Verified 02/21/23 20:07 Physical Examination Is a pleasant 62-year-old female in no acute distress. She is alert and oriented 3. Her son is present at bedside. Exam of her head neck reveal no obvious deformity. She has full cervical spine motion without difficulty or pain. Exam of the upper extremities reveals no obvious deformity. No areas of swelling or ecchymosis. She freely moves her upper extremities in bed without difficulty or pain. Exam of the lower extremities reveals external rotation to the left leg. Minimal shortening noted. She has full foot and ankle motion bilaterally. Ped al pulses are +1-2/4 bilaterally. Neurovascular status to the lower extremities is intact. Results X-rays of the pelvis and left hip reveal a comminuted intertrochanteric fracture of the left hip. - Labs Labs: Abnormal Lab Results - Last 24 Hours (Table) 02/21/23 02/21/23 02/21/23 Range/Units 18:54 18:54 20:16 WBC 11.3 H (3.8-10.6) k/uL Neutrophils # 9.2 H (1.3-7.7) k/uL APTT 21.1 L (22.0-30.0) sec Glucose 177 H (74-99) mg/dL POC Glucose (mg/dL) (70-110) mg/dL 02/22/23 Range/Units 05:41 WBC (3.8-10.6) k/uL Neutrophils # (1.3-7.7) k/uL APTT (22.0-30.0) sec Glucose (74-99) mg/dL POC Glucose (mg/dL) 122 H (70-110) mg/dL H & H 02/21/23 Range/Units 18:54 Hgb 13.5 (11.4-16.0) gm/dL Hct 39.2 (34.0-46.0) % Coagulation 02/21/23 Range/Units 18:54 INR 1.0 (<1.2) Result Diagrams: 02/21/23 18:54 02/21/23 20:16 Assessment and Plan (1) Closed left hip fracture Current Visit: Yes Status: Acute Code(s): S72.002A - FRACTURE OF UNSP PART OF NECK OF LEFT FEMUR, INIT SNOMED Code(s): 714311296 (2) Fall Current Visit: Yes Status: Acute Code(s): W19.XXXA - UNSPECIFIED FALL, INITIAL ENCOUNTER SNOMED Code(s): 3023147 (3) Diabetes Current Visit: No Status: Chronic Code(s): E11.9 - TYPE 2 DIABETES MELLITUS WITHOUT COMPLICATIONS SNOMED Code(s): 66412540 Plan: The clinical and x-ray findings are discussed with the patient and her family. It is recommended she undergo closed reduction with insertion of intertrochanteric nail of the left hip today. The procedures discussed in detail including the possible risks and outcomes. We discussed the potential need for inpatient rehab postoperatively. After discussion and consideration the patient elects to proceed with surgery.
--- NOTE | 2023-02-22 10:05 | P.CONS ---
History of Present Illness - History of Present Illness This is a pleasant 62 years old female with past medical history of diabetes mellitus, hypertension, heart murmur, alpha-1 antitrypsin deficiency for which she receives weekly infusion and history of emphysema Patient said that she was walking in the portal area which was worse when her feet slipped and fell on her left side followed by severe pain in the left hip area She denies chest pain or dyspnea, she denies coughing, no change in urine or bowel habits, no abdominal pain or vomiting. No weakness numbness or headache or dizziness. She denies smoking alcohol or illicit drug. She states she has history of emphysema and alpha-1 antitrypsin deficiency and she follows up with Dr. Waterman She denies any respiratory symptoms currently. 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 Does not use inhaler. No recent history of cardiac disease or renal disease. Her father has atrial fibrillation No other liver thyroid disease, no history of ulcer disease or GERD She is hemodynamically stable Vitals are unremarkable Labs reviewed she has mild leukocytosis of 11.3, risks of CBC, INR, BMP and liver enzymes were unremarkable Glucose control, troponin negative. Chest x-ray: No acute process, no mass or consolidation. I reviewed the chest x-ray by myself EKG showing normal sinus rhythm at [address]-T changes and QTC 431 left hip xr: intertrochanteric fracture with displacement Review of Systems Review of systems CONSTITUTIONAL: No fever, no malaise, no fatigue. HEENT: No recent visual problems or hearing problems. Denied any sore throat. CARDIOVASCULAR: No orthopnea, PND, no palpitations, no syncope. PULMONARY: No shortness of breath, no cough, no hemoptysis. GASTROINTESTINAL: No diarrhea, no nausea, no vomiting, no abdominal pain. Normoactive bowel sounds. NEUROLOGICAL: No headaches, no weakness, no numbness. HEMATOLOGICAL: Denies any bleeding or petechiae. GENITOURINARY: Denies any burning micturition, frequency, or urgency. MUSCULOSKELETAL/RHEUMATOLOGICAL: Denies any joint pain, swelling, or any muscle pain. ENDOCRINE: Denies any polyuria or polydipsia. Past Medical History Past Medical History: Diabetes Mellitus, Hypertension Additional Past Medical History / Comment(s): MURMUR, alpha 1 anti tripsid History of Any Multi-Drug Resistant Organisms: None Reported Past Surgical History: Appendectomy Past Anesthesia/Blood Transfusion Reactions: No Reported Reaction Past Psychological History: No Psychological Hx Reported Smoking Status: Never smoker Past Alcohol Use History: Rare Past Drug Use History: None Reported - Past Family History Father Family Medical History: Cancer, Chest Pain / Angina, Hypertension, Prostate Disorder Additional Family Medical History / Comment(s): DAD IS AGE 74 HAS PROSTATE Mother Family Medical History: Diabetes Mellitus, Renal Disease Additional Family Medical History / Comment(s): AGE 74 HAS STAGE 4 KIDNEY DISEASE Medications and Allergies Home Medications Medication Instructions Recorded Confirmed Type Albuterol Inhaler [Ventolin Hfa 1 - 2 puff INHALATION RT-Q6H PRN 02/21/23 02/21/23 History Inhaler] EPINEPHrine (Auto Inject) [Epipen] 0.3 mg IM ONCE PRN 02/21/23 02/21/23 History Escitalopram [Lexapro] 10 mg PO DAILY 02/21/23 02/21/23 History Losartan-Hctz 50-12.5 mg [Hyzaar 1 tab PO DAILY 02/21/23 02/21/23 History 50-12.5] Omalizumab [Xolair] 75 mg SQ Q14D 02/21/23 02/21/23 History Omalizumab [Xolair] 150 mg SQ Q14D 02/21/23 02/21/23 History Pioglitazone [Actos] 45 mg PO DAILY 02/21/23 02/21/23 History Prolastin-C 1,000 Mg (+-)/20 Ml 1 dose IV WE 02/21/23 02/21/23 History Solution Tirzepatide [Mounjaro] 7.5 mg SQ RAE 02/21/23 02/21/23 History Allergies Allergy/AdvReac Type Severity Reaction Status Date / Time No Known Allergies Allergy Verified 02/21/23 20:07 Physical Exam Vitals: Vital Signs Temp Pulse Pulse Resp BP BP Pulse Ox 02/22/23 07:11 98.8 F 70 16 108/66 96 02/22/23 01:15 98 F 71 18 129/62 95 02/21/23 23:01 97.8 F 68 18 147/81 97 02/21/23 22:13 98.3 F 65 12 114/56 99 02/21/23 21:30 65 18 127/74 99 02/21/23 20:43 64 16 131/47 98 02/21/23 20:00 68 16 133/44 99 02/21/23 19:00 15 132/50 99 02/21/23 18:37 98.3 F 65 18 137/68 97 Intake and Output 02/21/23 02/22/23 02/22/23 22:59 06:59 14:59 Output Total 300 Balance -300 Output: Urine 300 Other: Voiding Method External Catheter Weight 122.47 kg -GENERAL: The patient is alert and oriented x3, not in any acute distress. Obes e. HEENT: Pupils are round and equally reacting to light. EOMI. No scleral icterus. No conjunctival pallor. Normocephalic, atraumatic. No pharyngeal erythema. No thyromegaly. CARDIOVASCULAR: S1 and S2 present. No murmurs, rubs, or gallops. PULMONARY: Chest is clear to auscultation, no wheezing , no crackles. ABDOMEN: Soft, nontender, nondistended, normoactive bowel sounds. No palpable organomegaly. MUSCULOSKELETAL: No joint swelling or deformity. -EXTREMITIES: No cyanosis, clubbing, or pedal edema. Left hip tenderness NEUROLOGICAL: Gross neurological examination did not reveal any focal deficits. SKIN: No rashes. no petechiae. Results CBC & Chem 7: 02/21/23 18:54 02/21/23 20:16 Labs: Abnormal Lab Results - Last 24 Hours (Table) 02/21/23 02/21/23 02/21/23 Range/Units 18:54 18:54 20:16 WBC 11.3 H (3.8-10.6) k/uL Neutrophils # 9.2 H (1.3-7.7) k/uL APTT 21.1 L (22.0-30.0) sec Glucose 177 H (74-99) mg/dL POC Glucose (mg/dL) (70-110) mg/dL 02/22/23 Range/Units 05:41 WBC (3.8-10.6) k/uL Neutrophils # (1.3-7.7) k/uL APTT (22.0-30.0) sec Glucose (74-99) mg/dL POC Glucose (mg/dL) 122 H (70-110) mg/dL Assessment and Plan Assessment: Fall without feeling dizzy acute Left intertrochanteric fracture with displacement , secondary to above Diabetes mellitus Hypertension Chronic heart murmur History of of 1 antitrypsin deficiency Obesity with BMI of 41.1 Plan: Continue with gentle hydration Patient currently on room air with no symptoms, no chest pain or dyspnea no recent symptoms or infection. Patient has sedentary lifestyle and obesity which are some risk factor but no active symptoms. From a medical perspective patient at some risk going through this intermediate risk procedure but there is no absolute contraindication. Labs and medication were reviewed.. Continue same treatment. Continue with symptomatic treatment. Resume home medication. Monitor labs and vitals. DVT and GI prophylaxis. Further recommendations as per clinical course of the patient DVT prophylaxis: Deferred to surgery team GI Prophylaxis: Pepcid Prognosis is guarded Thank you for consulting us we will follow up
[2023-02-22 11:42] LABS: Glucose,Whole Blood 120 mg/dL (70-110)
[2023-02-22] MEDS: SODIUM CHLORIDE 0.9% 1,000 ML IV SCH ×3 (12:32→21:10)
[2023-02-22 12:47] LABS: Appearance,Urine Clear (Clear); Bilirubin,Urine Negative (Negative); Blood,Urine Moderate (Negative); Color,Urine Yellow; Glucose,Urine (UA) Negative (Negative); Ketones,Urine Negative (Negative); Leukocyte Esterase,Urine Negative (Negative); Mucus,Urine Many /hpf; Nitrite,Urine Negative (Negative); PH, Urine 5.5 (5.0-8.0); Protein,Urine Negative (Negative); RBC,Urine 41 /hpf (0-5); Specific Gravity,Urine 1.026 (1.001-1.035); Squamous Epithelial Cell,Urine 1 /hpf (0-4); Urobilinogen,Urine <2.0 mg/dL (<2.0); WBC,Urine 4 /hpf (0-5)
[2023-02-22] MEDS ORDERED: LACTATED RINGERS 1,000 ML IV ONE ×2 (13:15→15:55)
[2023-02-22] MEDS ORDERED: DEXAMETHASONE SOD PHOSPHATE 4 MG/ML 1 ML VIAL IVP ONE (13:33)
[2023-02-22] MEDS ORDERED: METOCLOPRAMIDE 5 MG/ML 2 ML VIAL IVP ONE (13:34)
[2023-02-22] MEDS ORDERED: ALBUTEROL NEBULIZED 2.5 MG/3 ML INHALATION ONE (13:34)
[2023-02-22] MEDS ORDERED: FAMOTIDINE 20 MG/2 ML VIAL IVP ONE (13:34)
[2023-02-22] MEDS ORDERED: ONDANSETRON 4 MG/2 ML VIAL IVP ONE (13:34)
[2023-02-22] MEDS ORDERED: SUCCINYLCHOLINE CHLORIDE 200 MG/10 ML VIAL IV ONE (14:27)
[2023-02-22] MEDS ORDERED: ROCURONIUM 10 MG/ML (5 ML VIAL) IV ONE (14:27)
[2023-02-22] MEDS ORDERED: MIDAZOLAM 2 MG/2 ML VIAL ONE (14:27)
[2023-02-22] MEDS ORDERED: PROPOFOL 10 MG/ML 20 ML VIAL IV ONE (14:27)
[2023-02-22] MEDS ORDERED: LIDOCAINE 1% INJ 10MG/ML (20 ML MDV) ONE (14:27)
[2023-02-22] MEDS ORDERED: fentaNYL (PF) 50 MCG/ML 2 ML AMP ONE (14:27)
[2023-02-22] MEDS ORDERED: ceFAZolin 1,000 MG VIAL ONE (14:27)
[2023-02-22] MEDS ORDERED: SODIUM CHLORIDE 0.9% 100 ML BAG ONE (14:27)
[2023-02-22] MEDS ORDERED: SODIUM CHLORIDE 0.9% 100 ML with ceFAZolin 3,000 MG IV ONE ×2 (14:30)
[2023-02-22] MEDS ORDERED: HYDROcodone/APAP 5-325MG 1 EACH TAB PO PRN (16:13)
[2023-02-22] MEDS ORDERED: MAGNESIUM HYDROXIDE 2,400 MG/30 ML CUP PO PRN (16:13)
[2023-02-22] MEDS ORDERED: NALOXONE 0.4 MG/ML 1 ML VIAL IV PRN (16:13)
[2023-02-22] MEDS ORDERED: HYDROmorphone 0.5 MG/0.5 ML SYRINGE IVP PRN ×3 (16:13)
[2023-02-22] MEDS ORDERED: MEPERIDINE 50 MG/ML SYRINGE IVP ONE (16:28)
[2023-02-22] MEDS ORDERED: diphenhydrAMINE 50 MG/ML 1 ML VIAL IVP ONE (16:43)
[2023-02-22] MEDS ORDERED: KETOROLAC 15 MG/ML 1 ML VIAL IVP ONE (16:43)
--- NOTE | 2023-02-22 16:49 | FL ---
EXAMINATION TYPE: FL guidance operating room, XR Hip Complete LT Intraoperative/procedural fluoroscop ic services were provided. Total fluoroscopy time is 1 minute 57 seconds with a total of 4 submitted images to PACS. Please see the operative/procedural note for further details. DAP: 21.141 mGym2 Gycm2
[2023-02-22 17:57] LABS: Basophils % (A) 0 %; Eosinophils % (A) 0 %; HCT 38.3 % (34.0-46.0); HGB 12.7 gm/dL (11.4-16.0); Lymphocytes # (A) 0.7 k/uL (1.0-4.8); Lymphocytes % (A) 6 %; MCHC 33.1 g/dL (31.0-37.0); MCV 90.4 fL (80.0-100.0); Mean Platelet Volume 7.7; Monocytes # (A) 0.3 k/uL (0-1.0); Monocytes % (A) 3 %; Neutrophils # (A) 10.5 k/uL (1.3-7.7); Neutrophils % (A) 91 %; Platelet Count 171 k/uL (150-450); RBC 4.23 m/uL (3.80-5.40); RDW 13.8 % (11.5-15.5); WBC 11.6 k/uL (3.8-10.6)
[2023-02-22 18:09] LABS: Glucose,Whole Blood 207 mg/dL (70-110)
[2023-02-22] MEDS: LACTATED RINGERS 1,000 ML IV SCH (18:52)
[2023-02-22 19:31] LABS: Glucose,Whole Blood 195 mg/dL (70-110)
[2023-02-22] MEDS: SENNOSIDES-DOCUSATE SODIUM 1 EACH TAB PO SCH (21:11)
[2023-02-22] MEDS: HYDROcodone/APAP 5-325MG 1 EACH TAB PO PRN (21:12)
[2023-02-22] MEDS ORDERED: TEMAZEPAM 15 MG CAP PO PRN (22:00)
[2023-02-23] MEDS: ASPIRIN 81 MG PO SCH ×2 (06:08→23:10)
[2023-02-23] MEDS: HYDROcodone/APAP 5-325MG 1 EACH TAB PO PRN ×2 (06:08→11:40)
[2023-02-23] MEDS: LACTATED RINGERS 1,000 ML IV SCH ×3 (06:09→23:50)
[2023-02-23] MEDS: SODIUM CHLORIDE 0.9% 1,000 ML IV SCH ×3 (06:09→23:50)
[2023-02-23 06:18] LABS: Glucose,Whole Blood 186 mg/dL (70-110)
[2023-02-23] MEDS: INSULIN ASPART (NovoLOG) 100 UNIT/ML VIAL SQ SCH ×4 (06:23→23:05)
[2023-02-23] MEDS: PANTOPRAZOLE 40 MG TABLET PO SCH (07:40)
[2023-02-23] MEDS: PIOGLITAZONE 45 MG TAB PO SCH (07:41)
[2023-02-23] MEDS: LOSARTAN-HCTZ 50-12.5 MG 1 EACH TAB PO SCH (07:41)
[2023-02-23] MEDS: ESCITALOPRAM 10 MG TAB PO SCH (07:41)
[2023-02-23] MEDS: diazePAM 5 MG TAB PO PRN (09:04)
--- NOTE | 2023-02-23 10:08 | P.PN ---
Subjective Progress Note Date: 02/23/23 Principal diagnosis: Left hip intertrochanteric fracture. Status post close reduction with insertion of intertrochanteric nail left hip. This is a 62-year-old female is status post close reduction with insertion of intertrochanteric nail of the left hip. Today's. Day #1. She is stable from an orthopedic standpoint. She states that she continues to have some spasm in the hip and leg. Pain is overall fairly well controlled. Vital signs are stable. Objective - Vital Signs Vital signs: Vital Signs Temp 98.2 F 02/23/23 07:07 Pulse 68 02/23/23 07:07 Resp 14 02/23/23 07:07 BP 127/62 02/23/23 07:07 Pulse Ox 97 02/23/23 07:07 FiO2 Intake & Output 02/22/23 02/23/23 02/23/23 18:59 06:59 18:59 Intake Total 2380 Output Total 725 1025 Balance 1655 -1025 Intake: IV 2380 Sodium Chloride 0.9% 1, 780 000 ml @ 130 mls/hr IV . Q7H42M [facility] Rx#:[id number] Output: Urine 675 1025 Uretheral ([place]) 600 175 Estimated Blood Loss 50 Other: Voiding Method Indwelling Catheter Indwelling Catheter - Exam This is a pleasant 62-year-old female in no acute distress. She is alert and oriented 3. Exam of the left hip reveals that her dressing is clean, dry and intact. She has full foot and ankle motion without difficulty or pain. No Edema palpation. Pedal pulse is +2/4. Neurovascular status to the lower extremities intact. - Labs CBC & Chem 7: 02/22/23 17:35 02/21/23 20:16 Labs: Abnormal Lab Results - Last 24 Hours (Table) 02/22/23 02/22/23 02/22/23 Range/Units 07:06 11:41 12:30 WBC (3.8-10.6) k/uL Neutrophils # (1.3-7.7) k/uL Lymphocytes # (1.0-4.8) k/uL POC Glucose (mg/dL) 120 H (70-110) mg/dL Hemoglobin A1c 6.5 H (<=6.0) % Urine Blood Moderate H (Negative) Urine RBC 41 H (0-5) /hpf Urine Mucus Many H (None) /hpf 02/22/23 02/22/23 02/22/23 Range/Units 17:35 18:07 19:29 WBC 11.6 H (3.8-10.6) k/uL Neutrophils # 10.5 H (1.3-7.7) k/uL Lymphocytes # 0.7 L (1.0-4.8) k/uL POC Glucose (mg/dL) 207 H 195 H (70-110) mg/dL Hemoglobin A1c (<=6.0) % Urine Blood (Negative) Urine RBC (0-5) /hpf Urine Mucus (None) /hpf 02/23/23 Range/Units 06:17 WBC (3.8-10.6) k/uL Neutrophils # (1.3-7.7) k/uL Lymphocytes # (1.0-4.8) k/uL POC Glucose (mg/dL) 186 H (70-110) mg/dL Hemoglobin A1c (<=6.0) % Urine Blood (Negative) Urine RBC (0-5) /hpf Urine Mucus (None) /hpf Assessment and Plan (1) Closed left hip fracture Current Visit: Yes Status: Acute Code(s): S72.002A - FRACTURE OF UNSP PART OF NECK OF LEFT FEMUR, INIT SNOMED Code(s): 202803279 (2) Fall Current Visit: Yes Status: Acute Code(s): W19.XXXA - UNSPECIFIED FALL, INITIAL ENCOUNTER SNOMED Code(s): 3664550 (3) Diabetes Current Visit: No Status: Chronic Code(s): E11.9 - TYPE 2 DIABETES MELLITUS WITHOUT COMPLICATIONS SNOMED Code(s): 86987403 Plan: The clinical findings are discussed with the patient. She may continue to get up with nursing staff as tolerated. She may bear weight as tolerated to the left lower extremity with use of a walker. We will see how she does over the next couple of days and then discharged to home possibly Friday versus inpatient rehab.
[2023-02-23 11:30] LABS: Glucose,Whole Blood 150 mg/dL (70-110)
[2023-02-23] MEDS: HYDROmorphone 1 MG/ML 1 ML SYRINGE IVP PRN (13:39)
[2023-02-23 16:27] LABS: Glucose,Whole Blood 203 mg/dL (70-110)
[2023-02-23] MEDS ORDERED: hydrOXYzine pamoate 25 MG CAP PO PRN (17:52)
[2023-02-23] MEDS ORDERED: HYDROcodone/APAP 7.5-325MG 1 EACH TAB PO PRN ×3 (17:55→18:04)
[2023-02-23] MEDS ORDERED: HYDROmorphone 1 MG/ML 1 ML SYRINGE IVP STA (18:11)
[2023-02-23 20:39] LABS: Glucose,Whole Blood 164 mg/dL (70-110)
--- NOTE | 2023-02-23 20:57 | P.PN ---
Subjective This is a pleasant 62 years old female with past medical history of diabetes mellitus, hypertension, heart murmur, alpha-1 antitrypsin deficiency for which she receives weekly infusion and history of emphysema Patient said that she was walking in the portal area which was worse when her feet slipped and fell on her left side followed by severe pain in the left hip area She denies chest pain or dyspnea, she denies coughing, no change in urine or bowel habits, no abdominal pain or vomiting. No weakness numbness or headache or dizziness. She denies smoking alcohol or illicit drug. She states she has history of emphysema and alpha-1 antitrypsin deficiency and she follows up with Dr. Waterman She denies any respiratory symptoms currently. 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 Does not use inhaler. No recent history of cardiac disease or renal disease. Her father has atrial fibrillation No other liver thyroid disease, no history of ulcer disease or GERD She is hemodynamically stable Vitals are unremarkable Labs reviewed she has mild leukocytosis of 11.3, risks of CBC, INR, BMP and liver enzymes were unremarkable Glucose control, troponin negative. Chest x-ray: No acute process, no mass or consolidation. I reviewed the chest x-ray by myself EKG showing normal sinus rhythm at [address]-T changes and QTC 431 left hip xr: intertrochanteric fracture with displacement 02/23/2023 She is status post hip surgery and she is doing well and pain is controlled No specific complaints no chest pain dyspnea or urinary or bowel complaints She remains with conservative management with pain control with [place] and other pain medication addressed by primary team She is also on DVT prophylaxis per primary team aspirin 81 mg twice daily She has mild leukocytosis which is most likely reactive with no signs of infect ion, no need for antibiotics for now The globe an A1c 6.5% and labs including BMP and LFTs were reviewed and basically are unremarkable. Plan for her to go home versus rehab on Friday. Objective - Vital Signs Vital signs: Vital Signs Temp 98.0 F 02/23/23 11:56 Pulse 67 02/23/23 11:56 Resp 14 02/23/23 11:56 BP 116/68 02/23/23 11:56 Pulse Ox 98 02/23/23 11:56 FiO2 Intake & Output 02/22/23 02/23/23 02/23/23 18:59 06:59 18:59 Intake Total 2380 Output Total 725 1025 Balance 1655 -1025 Intake: IV 2380 Sodium Chloride 0.9% 1, 780 000 ml @ 130 mls/hr IV . Q7H42M [facility] Rx#:[id number] Output: Urine 675 1025 Uretheral ([place]) 600 175 Estimated Blood Loss 50 Other: Voiding Method Indwelling Catheter Indwelling Catheter - Exam GENERAL: The patient is alert and oriented x3, not in any acute distress. Well developed, well nourished. HEENT: Pupils are round and equally reacting to light. EOMI. No scleral icterus. No conjunctival pallor. Normocephalic, atraumatic. No pharyngeal erythema. No thyromegaly. CARDIOVASCULAR: S1 and S2 present. No murmurs, rubs, or gallops. PULMONARY: Chest is clear to auscultation, no wheezing , no crackles. ABDOMEN: Soft, nontender, nondistended, normoactive bowel sounds. No palpable organomegaly. MUSCULOSKELETAL: No joint swelling or deformity. -EXTREMITIES: No cyanosis, clubbing, or pedal edema. Left hip wound with recent plane, rest of exam is deferred to surgery team NEUROLOGICAL: Gross neurological examination did not reveal any focal deficits. SKIN: No rashes. no petechiae. - Labs CBC & Chem 7: 02/22/23 17:35 02/21/23 20:16 Labs: Abnormal Lab Results - Last 24 Hours (Table) 02/22/23 02/23/23 02/23/23 Range/Units 19:29 06:17 11:29 POC Glucose (mg/dL) 195 H 186 H 150 H (70-110) mg/dL 02/23/23 Range/Units 16:25 POC Glucose (mg/dL) 203 H (70-110) mg/dL Assessment and Plan Assessment: Fall without feeling dizzy acute Left intertrochanteric fracture with displacement , secondary to above Diabetes mellitus Hypertension Chronic heart murmur History of of 1 antitrypsin deficiency Obesity with BMI of 41.1 Plan: Continue with supportive care Continue with pain management as per primary team late risk procedure but there is no absolute contraindication. Labs and medication were reviewed.. Continue same treatment. Continue with symptomatic treatment. Resume home medication. Monitor labs and vitals. DVT and GI prophylaxis. Further recommendations as per clinical course of the patient DVT prophylaxis: Deferred to surgery team GI Prophylaxis: Pepcid Planned for home versus rehab Thank you for consulting us we will follow up
[2023-02-23] MEDS: SENNOSIDES-DOCUSATE SODIUM 1 EACH TAB PO SCH (23:10)
[2023-02-23] MEDS: hydrOXYzine pamoate 25 MG CAP PO PRN (23:10)
[2023-02-23] MEDS: HYDROcodone/APAP 7.5-325MG 1 EACH TAB PO PRN (23:15)
[2023-02-24] MEDS: SODIUM CHLORIDE 0.9% 1,000 ML IV SCH ×4 (03:19→21:44)
[2023-02-24 06:29] LABS: Glucose,Whole Blood 122 mg/dL (70-110)
[2023-02-24] MEDS: INSULIN ASPART (NovoLOG) 100 UNIT/ML VIAL SQ SCH ×4 (06:47→21:43)
[2023-02-24] MEDS: HYDROcodone/APAP 7.5-325MG 1 EACH TAB PO PRN ×3 (06:49→18:27)
[2023-02-24] MEDS: PANTOPRAZOLE 40 MG TABLET PO SCH (06:50)
[2023-02-24] MEDS: PIOGLITAZONE 45 MG TAB PO SCH (08:12)
[2023-02-24] MEDS: LOSARTAN-HCTZ 50-12.5 MG 1 EACH TAB PO SCH (08:12)
[2023-02-24] MEDS: ESCITALOPRAM 10 MG TAB PO SCH (08:12)
[2023-02-24] MEDS: ASPIRIN 81 MG PO SCH ×2 (08:12→21:43)
--- NOTE | 2023-02-24 09:35 | P.PN ---
Subjective Progress Note Date: 02/24/23 Principal diagnosis: Left hip intertrochanteric fracture. Status post close reduction with insertion of intertrochanteric nail left hip. This is a 62-year-old female is status post close reduction with insertion of intertrochanteric nail of the left hip. Today's. Day #2. She is stable from an orthopedic standpoint. She states that she continues to have some spasm in the hip and leg. Pain is overall fairly well controlled. Vital signs are stable. Objective - Vital Signs Vital signs: Vital Signs Temp 98.2 F 02/24/23 08:00 Pulse 77 02/24/23 08:00 Resp 16 02/24/23 08:00 BP 127/72 02/24/23 08:00 Pulse Ox 93 L 02/24/23 08:00 FiO2 Intake & Output 02/23/23 02/24/23 02/24/23 18:59 06:59 18:59 Other: # Voids 2 1 - Exam This is a pleasant 62-year-old female in no acute distress. She is alert and oriented 3. Exam of the left hip reveals that her dressing is clean, dry and intact. She has full foot and ankle motion without difficulty or pain. No Edema palpation. Pedal pulse is +2/4. Neurovascular status to the lower extremities intact. - Labs CBC & Chem 7: 02/22/23 17:35 02/21/23 20:16 Labs: Abnormal Lab Results - Last 24 Hours (Table) 02/23/23 02/23/23 02/23/23 Range/Units 11:29 16:25 20:36 POC Glucose (mg/dL) 150 H 203 H 164 H (70-110) mg/dL 02/24/23 Range/Units 06:27 POC Glucose (mg/dL) 122 H (70-110) mg/dL Assessment and Plan (1) Closed left hip fracture Current Visit: Yes Status: Acute Code(s): S72.002A - FRACTURE OF UNSP PART OF NECK OF LEFT FEMUR, INIT SNOMED Code(s): 728460448 (2) Fall Current Visit: Yes Status: Acute Code(s): W19.XXXA - UNSPECIFIED FALL, INIT IAL ENCOUNTER SNOMED Code(s): 5533635 (3) Diabetes Current Visit: No Status: Chronic Code(s): E11.9 - TYPE 2 DIABETES MELLITUS WITHOUT COMPLICATIONS SNOMED Code(s): 01910481 Plan: The clinical findings are discussed with the patient. She may continue to get up with nursing staff as tolerated. She may bear weight as tolerated to the left lower extremity with use of a walker. We will see how she does over the next couple of days and then discharged to home possibly Friday versus inpatient rehab.
[2023-02-24 11:56] LABS: Glucose,Whole Blood 160 mg/dL (70-110)
[2023-02-24] MEDS: LACTATED RINGERS 1,000 ML IV SCH ×3 (15:01→21:44)
[2023-02-24 16:43] LABS: Glucose,Whole Blood 186 mg/dL (70-110)
[2023-02-24 17:38] LABS: Basophils % (A) 0 %; Eosinophils # (A) 0.2 k/uL (0-0.7); Eosinophils % (A) 2 %; HCT 30.1 % (34.0-46.0); Lymphocytes # (A) 2.1 k/uL (1.0-4.8); Lymphocytes % (A) 24 %; MCHC 33.1 g/dL (31.0-37.0); MCV 90.6 fL (80.0-100.0); Mean Platelet Volume 8.7; Monocytes # (A) 0.7 k/uL (0-1.0); Monocytes % (A) 8 %; Neutrophils # (A) 5.9 k/uL (1.3-7.7); Neutrophils % (A) 66 %; Platelet Count 204 k/uL (150-450); RBC 3.32 m/uL (3.80-5.40); WBC 8.9 k/uL (3.8-10.6)
--- NOTE | 2023-02-24 19:56 | P.PN ---
Subjective This is a pleasant 62 years old female with past medical history of diabetes mellitus, hypertension, heart murmur, alpha-1 antitrypsin deficiency for which she receives weekly infusion and history of emphysema Patient said that she was walking in the portal area which was worse when her feet slipped and fell on her left side followed by severe pain in the left hip area She denies chest pain or dyspnea, she denies coughing, no change in urine or bowel habits, no abdominal pain or vomiting. No weakness numbness or headache or dizziness. She denies smoking alcohol or illicit drug. She states she has history of emphysema and alpha-1 antitrypsin deficiency and she follows up with Dr. Waterman She denies any respiratory symptoms currently. 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 Does not use inhaler. No recent history of cardiac disease or renal disease. Her father has atrial fibrillation No other liver thyroid disease, no history of ulcer disease or GERD She is hemodynamically stable Vitals are unremarkable Labs reviewed she has mild leukocytosis of 11.3, risks of CBC, INR, BMP and liver enzymes were unremarkable Glucose control, troponin negative. Chest x-ray: No acute process, no mass or consolidation. I reviewed the chest x-ray by myself EKG showing normal sinus rhythm at [address]-T changes and QTC 431 left hip xr: intertrochanteric fracture with displacement 02/23/2023 She is status post hip surgery and she is doing well and pain is controlled No specific complaints no chest pain dyspnea or urinary or bowel complaints She remains with conservative management with pain control with [place] and other pain medication addressed by primary team She is also on DVT prophylaxis per primary team aspirin 81 mg twice daily She has mild leukocytosis which is most likely reactive with no signs of infect ion, no need for antibiotics for now The globe an A1c 6.5% and labs including BMP and LFTs were reviewed and basically are unremarkable. Plan for her to go home versus rehab on Friday. 02/24/2023 patient denies any specific complaints. No chest pain no dyspnea Does not have bowel movement but she wants to wait: Does not want more laxative, already provided in the morning by the primary team Postop anemia is mild at 10 which is expected Plan for discharge possibly tomorrow either home versus rehab Objective - Vital Signs Vital signs: Vital Signs Temp 98.2 F 02/24/23 08:00 Pulse 77 02/24/23 08:00 Resp 16 02/24/23 08:00 BP 127/72 02/24/23 08:00 Pulse Ox 93 L 02/24/23 08:00 FiO2 Intake & Output 02/23/23 02/24/23 02/24/23 18:59 06:59 18:59 Other: # Voids 2 1 - Exam GENERAL: The patient is alert and oriented x3, not in any acute distress. Well developed, well nourished. HEENT: Pupils are round and equally reacting to light. EOMI. No scleral icterus. No conjunctival pallor. Normocephalic, atraumatic. No pharyngeal erythema. No thyromegaly. CARDIOVASCULAR: S1 and S2 present. No murmurs, rubs, or gallops. PULMONARY: Chest is clear to auscultation, no wheezing , no crackles. ABDOMEN: Soft, nontender, nondistended, normoactive bowel sounds. No palpable organomegaly. MUSCULOSKELETAL: No joint swelling or deformity. -EXTREMITIES: No cyanosis, clubbing, or pedal edema. Left hip wound with recent plane, rest of exam is deferred to surgery team NEUROLOGICAL: Gross neurological examination did not reveal any focal deficits. SKIN: No rashes. no petechiae. - Labs CBC & Chem 7: 02/24/23 16:31 02/21/23 20:16 Labs: Abnormal Lab Results - Last 24 Hours (Table) 02/23/23 02/23/23 02/23/23 Range/Units 11:29 16:25 20:36 POC Glucose (mg/dL) 150 H 203 H 164 H (70-110) mg/dL 02/24/23 Range/Units 06:27 POC Glucose (mg/dL) 122 H (70-110) mg/dL Assessment and Plan Assessment: Fall without feeling dizzy acute Left intertrochanteric fracture with displacement , secondary to above Diabetes mellitus Hypertension Chronic heart murmur History of of 1 antitrypsin deficiency Obesity with BMI of 41.1 Mild postoperative anemia, expected Plan: Continue with supportive care Continue with pain management as per primary team late risk procedure but there is no absolute contraindication. Labs and medication were reviewed.. Continue same treatment. Continue with symptomatic treatment. Resume home medication. Monitor labs and vitals. DVT and GI prophylaxis. Further recommendations as per clinical course of the patient DVT prophylaxis: Deferred to surgery team GI Prophylaxis: Pepcid Planned for home versus rehab Thank you for consulting us we will follow up
[2023-02-24 21:05] LABS: Glucose,Whole Blood 152 mg/dL (70-110)
[2023-02-24] MEDS: SENNOSIDES-DOCUSATE SODIUM 1 EACH TAB PO SCH (21:43)
[2023-02-24] MEDS: diazePAM 5 MG TAB PO PRN (21:50)
[2023-02-25 05:44] LABS: Glucose,Whole Blood 141 mg/dL (70-110)
[2023-02-25] MEDS: INSULIN ASPART (NovoLOG) 100 UNIT/ML VIAL SQ SCH ×4 (05:53→21:19)
[2023-02-25] MEDS: PANTOPRAZOLE 40 MG TABLET PO SCH (06:02)
[2023-02-25] MEDS: HYDROcodone/APAP 7.5-325MG 1 EACH TAB PO PRN ×2 (06:02→16:18)
[2023-02-25] MEDS: SODIUM CHLORIDE 0.9% 1,000 ML IV SCH ×3 (07:41→21:20)
[2023-02-25] MEDS: diazePAM 5 MG TAB PO PRN ×2 (07:47→18:46)
[2023-02-25] MEDS: ESCITALOPRAM 10 MG TAB PO SCH (09:31)
[2023-02-25] MEDS: LOSARTAN-HCTZ 50-12.5 MG 1 EACH TAB PO SCH (09:31)
[2023-02-25] MEDS: PIOGLITAZONE 45 MG TAB PO SCH (09:31)
[2023-02-25] MEDS: ASPIRIN 81 MG PO SCH ×2 (09:31→21:19)
--- NOTE | 2023-02-25 11:27 | P.PN ---
Subjective Progress Note Date: 02/25/23 Principal diagnosis: Left hip intertrochanteric fracture. Status post close reduction with insertion of intertrochanteric nail left hip. This is a 62-year-old female is status post close reduction with insertion of intertrochanteric nail of the left hip. Today's. Day #3. She is stable from an orthopedic standpoint. She states that she continues to have some spasm in the hip and leg. Pain is overall fairly well controlled. Vital signs are stable. She was only able to walk a few steps with physical therapy today. Their recommendation is inpatient rehabilitation. Objective - Vital Signs Vital signs: Vital Signs Temp 98.7 F 02/25/23 07:53 Pulse 78 02/25/23 07:53 Resp 14 02/25/23 07:53 BP 122/67 02/25/23 07:53 Pulse Ox 96 02/25/23 08:25 FiO2 Intake & Output 02/24/23 02/25/23 02/25/23 18:59 06:59 18:59 Intake Total 500 Balance 500 Intake: Oral 500 Other: # Voids 2 1 - Exam This is a pleasant 62-year-old female in no acute distress. She is alert and oriented 3. Exam of the left hip reveals that her dressing is clean, dry and intact. Moderate swelling to thigh. She has full foot and ankle motion without difficulty or pain. No Pain with palpation to the calf. Pedal pulse is +2/4. Neurovascular status to the lower extremities intact. - Labs CBC & Chem 7: 02/24/23 16:31 02/21/23 20:16 Labs: Abnormal Lab Results - Last 24 Hours (Table) 02/24/23 02/24/23 02/24/23 Range/Units 11:56 16:31 16:42 RBC 3.32 L (3.80-5.40) m/uL Hgb 10.0 L D (11.4-16.0) gm/dL Hct 30.1 L (34.0-46.0) % POC Glucose (mg/dL) 160 H 186 H (70-110) mg/dL 02/24/23 02/25/23 Range/Units 21:04 05:42 RBC (3.80-5.40) m/uL Hgb (11.4-16.0) gm/dL Hct (34.0-46.0) % POC Glucose (mg/dL) 152 H 141 H (70-110) mg/dL Assessment and Plan (1) Closed left hip fracture Current Visit: Yes Status: Acute Code(s): S72.002A - FRACTURE OF UNSP PART OF NECK OF LEFT FEMUR, INIT SNOMED Code(s): 612786371 (2) Fall Current Visit: Yes Status: Acute Code(s): W19.XXXA - UNSPECIFIED FALL, INITIAL ENCOUNTER SNOMED Code(s): 0537459 (3) Diabetes Current Visit: No Status: Chronic Code(s): E11.9 - TYPE 2 DIABETES MELLITUS WITHOUT COMPLICATIONS SNOMED Code(s): 44027659 Plan: The clinical findings are discussed with the patient. She may continue to get up with nursing staff as tolerated. She may bear weight as tolerated to the left lower extremity with use of a walker. PT is recommending inpatient rehab. She will require a prior authorization. Continue care. Will discharge when rehab authorization is complete.
[2023-02-25 11:30] LABS: Glucose,Whole Blood 220 mg/dL (70-110)
[2023-02-25] MEDS: LACTATED RINGERS 1,000 ML IV SCH ×2 (11:40→21:20)
[2023-02-25 16:35] LABS: Glucose,Whole Blood 153 mg/dL (70-110)
[2023-02-25 20:31] LABS: Glucose,Whole Blood 162 mg/dL (70-110)
[2023-02-25] MEDS: SENNOSIDES-DOCUSATE SODIUM 1 EACH TAB PO SCH (21:19)
[2023-02-26 06:02] LABS: Glucose,Whole Blood 137 mg/dL (70-110)
[2023-02-26] MEDS: INSULIN ASPART (NovoLOG) 100 UNIT/ML VIAL SQ SCH ×4 (06:02→21:20)
[2023-02-26] MEDS: PANTOPRAZOLE 40 MG TABLET PO SCH (06:11)
[2023-02-26] MEDS: diazePAM 5 MG TAB PO PRN ×3 (06:16→22:27)
[2023-02-26] MEDS: ESCITALOPRAM 10 MG TAB PO SCH (08:17)
[2023-02-26] MEDS: PIOGLITAZONE 45 MG TAB PO SCH (08:17)
[2023-02-26] MEDS: ASPIRIN 81 MG PO SCH ×2 (08:17→21:20)
[2023-02-26] MEDS: LOSARTAN-HCTZ 50-12.5 MG 1 EACH TAB PO SCH (08:17)
[2023-02-26] MEDS: HYDROcodone/APAP 7.5-325MG 1 EACH TAB PO PRN ×2 (08:17→17:47)
--- NOTE | 2023-02-26 09:26 | P.PN ---
Subjective Progress Note Date: 02/26/23 Principal diagnosis: Status post left IT nail This is a 62 year-old female post left IT nail. This is post-op day 4. The patient was evaluated at the bedside today. The patient denies vomiting, abdominal pain, shortness of breath, and chest pain this morning. She is experiencing some nausea this morning. She has had a small bowel movement and is passing gas. Jennifer states her pain is controlled at this time. She is ambulating to the bathroom. Objective - Vital Signs Vital signs: Vital Signs Temp 99.0 F 02/26/23 07:50 Pulse 82 02/26/23 07:50 Resp 16 02/26/23 07:50 BP 151/70 02/26/23 07:50 Pulse Ox 96 02/26/23 07:50 FiO2 Intake & Output 02/25/23 02/26/23 02/26/23 18:59 06:59 18:59 Other: # Voids 1 1 - Exam The patient does not appear in acute distress. Alert and orientated x3. Dressings are clean dry and intact. Incision appears fine with no erythema or active drainage. Calf is soft and nontender. Good foot and ankle motion without difficulty. Sensation and circulatory status is intact. - Labs CBC & Chem 7: 02/24/23 16:31 02/21/23 20:16 Labs: Abnormal Lab Results - Last 24 Hours (Table) 02/25/23 02/25/23 02/25/23 Range/Units 11:26 16:34 20:28 POC Glucose (mg/dL) 220 H 153 H 162 H (70-110) mg/dL 02/26/23 Range/Units 05:59 POC Glucose (mg/dL) 137 H (70-110) mg/dL Assessment and Plan (1) Status post hip surgery Current Visit: Yes Status: Acute Code(s): Z98.890 - OTHER SPECIFIED POSTPROCEDURAL STATES SNOMED Code(s): 504018669 (2) Closed left hip fracture Current Visit: Yes Status: Acute Code(s): S72.002A - FRACTURE OF UNSP PART OF NECK OF LEFT FEMUR, INIT SNOMED Code(s): 178894303 (3) Fall Current Visit: Yes Status: Acute Code(s): W19.XXXA - UNSPECIFIED FALL, INITIAL ENCOUNTER SNOMED Code(s): 6106576 Plan: 1. Continue pain control 2. Anticoagulation with Aspirin 3. Continue physical therapy and ambulation 4. Anticipate discharge to rehab after insurance authorization is obtained.
[2023-02-26] MEDS: hydrOXYzine pamoate 25 MG CAP PO PRN (10:30)
[2023-02-26 11:22] LABS: Glucose,Whole Blood 197 mg/dL (70-110)
[2023-02-26] MEDS: LACTATED RINGERS 1,000 ML IV SCH ×2 (14:37→21:17)
[2023-02-26] MEDS: SODIUM CHLORIDE 0.9% 1,000 ML IV SCH ×2 (14:37→21:17)
[2023-02-26 16:37] LABS: Glucose,Whole Blood 175 mg/dL (70-110)
--- NOTE | 2023-02-26 16:49 | P.OP ---
Date of Procedure: 02/22/23 Preoperative Diagnosis: left intertrochanteric hip fracture Postoperative Diagnosis: same Procedure(s) Performed: left hip cephalomedullary nail Implants: gamma nail, short 110mm lag screw Anesthesia: HANNAHA Surgeon: Cathi Sagastume Estimated Blood Loss (ml): 50 Condition: stable Disposition: PACU Indications for Procedure: Patient had a fall resulting in an intertrochanteric fracture. We had a discussion about treatment options and have elected to proceed with surgical fixation. Description of Procedure: The patient, operative extremity, and procedure were identified in the pre-op holding area. After informed consent was obtained. The patient was brought back to the OR. The patient was then positioned on the [place] table. Both feet were placed in well padded boots and the well leg was scissored with traction unlocked. All bony prominences were well padded. A reduction was performed with abduction and traction followed by adduction and internal rotation. This was confirmed on fluoroscopy. The operative site was then prepped and draped in normal sterile fashion. A 8cm incision was made posterior and proximal to the greater trochanter. The awl was introduced and used to hold the start point for the guide wire. The guide wire was then inserted. The position of the guide wire was confirmed on orthogonal views. The awl was substituted for the opening reamer. The ball tip guide wire was then introduced across the fracture and once placement was confirmed, sequential reamers were introduced until the 12.5mm reamer was threaded over the wire and removed. The short nail was then placed over the wire and seated to the proper depth. The guide wire was removed. The triple cannula was then utilized to place the femoral neck guide pin. An incision was made to seat the triple cannula. Wire placement was checked on orthogonal views. The measuring guide showed that a 110 mm screw would be appropriate for a tip to apex distance of less than 25mm. The reamer was set and utilized. The lag screw was then inserted. The superior locking screw was then tightened and loosened a quarter turn. The triple sleeve was removed and the jig was reset for the locking screw distally. The triple sleeve was inserted through an incision through skin and IT band. The hole was drilled and a screw was inserted. Final views showed acceptable reduction and placement of the hardware. Wounds were irrigated and closed with 2.0 vycril and 4.0 monocryl and skin glue. Wounds were dressed with gauze and tegaderm. Patient was aroused by the anesthesia team and brought back to PACU in stable condition.
[2023-02-26 20:09] LABS: Glucose,Whole Blood 189 mg/dL (70-110)
[2023-02-26] MEDS: SENNOSIDES-DOCUSATE SODIUM 1 EACH TAB PO SCH (21:20)
[2023-02-27] MEDS: SODIUM CHLORIDE 0.9% 1,000 ML IV SCH (02:05)
[2023-02-27] MEDS: LACTATED RINGERS 1,000 ML IV SCH (05:37)
[2023-02-27 05:57] LABS: Glucose,Whole Blood 114 mg/dL (70-110)
[2023-02-27] MEDS: INSULIN ASPART (NovoLOG) 100 UNIT/ML VIAL SQ SCH ×4 (06:17→20:30)
[2023-02-27] MEDS: diazePAM 5 MG TAB PO PRN ×2 (06:24→20:31)
[2023-02-27] MEDS: PANTOPRAZOLE 40 MG TABLET PO SCH (06:24)
[2023-02-27] MEDS: HYDROcodone/APAP 7.5-325MG 1 EACH TAB PO PRN ×3 (06:25→20:30)
--- NOTE | 2023-02-27 08:09 | P.PN ---
Subjective This is a pleasant 62 years old female with past medical history of diabetes mellitus, hypertension, heart murmur, alpha-1 antitrypsin deficiency for which she receives weekly infusion and history of emphysema Patient said that she was walking in the portal area which was worse when her feet slipped and fell on her left side followed by severe pain in the left hip area She denies chest pain or dyspnea, she denies coughing, no change in urine or bowel habits, no abdominal pain or vomiting. No weakness numbness or headache or dizziness. She denies smoking alcohol or illicit drug. She states she has history of emphysema and alpha-1 antitrypsin deficiency and she follows up with Dr. Waterman She denies any respiratory symptoms currently. 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 Does not use inhaler. No recent history of cardiac disease or renal disease. Her father has atrial fibrillation No other liver thyroid disease, no history of ulcer disease or GERD She is hemodynamically stable Vitals are unremarkable Labs reviewed she has mild leukocytosis of 11.3, risks of CBC, INR, BMP and liver enzymes were unremarkable Glucose control, troponin negative. Chest x-ray: No acute process, no mass or consolidation. I reviewed the chest x-ray by myself EKG showing normal sinus rhythm at [address]-T changes and QTC 431 left hip xr: intertrochanteric fracture with displacement 02/23/2023 She is status post hip surgery and she is doing well and pain is controlled No specific complaints no chest pain dyspnea or urinary or bowel complaints She remains with conservative management with pain control with [place] and other pain medication addressed by primary team She is also on DVT prophylaxis per primary team aspirin 81 mg twice daily She has mild leukocytosis which is most likely reactive with no signs of infect ion, no need for antibiotics for now The globe an A1c 6.5% and labs including BMP and LFTs were reviewed and basically are unremarkable. Plan for her to go home versus rehab on Friday. 02/24/2023 patient denies any specific complaints. No chest pain no dyspnea Does not have bowel movement but she wants to wait: Does not want more laxative, already provided in the morning by the primary team Postop anemia is mild at 10 which is expected Plan for discharge possibly tomorrow either home versus rehab 02/25/2023 Patient denies chest pain or dyspnea She has some constipation that she declines more stool softener for, which is already provided. No urinary complaints. No other new complaints. Hemodynamically stable. However patient is still complaining of from pain at the hip area and she's been evaluated by physical therapist and the recommended subacute rehab upon discharge, patient feels the same she needs to go to rehab first Objective - Vital Signs Vital signs: Vital Signs Temp 98.9 F 02/25/23 12:01 Pulse 65 02/25/23 12:01 Resp 14 02/25/23 12:01 BP 128/59 02/25/23 12:01 Pulse Ox 98 02/25/23 12:01 FiO2 Intake & Output 02/24/23 02/25/23 02/25/23 18:59 06:59 18:59 Intake Total 500 Balance 500 Intake: Oral 500 Other: # Voids 2 1 - Exam GENERAL: The patient is alert and oriented x3, not in any acute distress. Well developed, well nourished. HEENT: Pupils are round and equally reacting to light. EOMI. No scleral icterus. No conjunctival pallor. Normocephalic, atraumatic. No pharyngeal erythema. No thyromegaly. CARDIOVASCULAR: S1 and S2 present. No murmurs, rubs, or gallops. PULMONARY: Chest is clear to auscultation, no wheezing , no crackles. ABDOMEN: Soft, nontender, nondistended, normoactive bowel sounds. No palpable organomegaly. MUSCULOSKELETAL: No joint swelling or deformity. -EXTREMITIES: No cyanosis, clubbing, or pedal edema. Left hip wound with recent plane, rest of exam is deferred to surgery team NEUROLOGICAL: Gross neurological examination did not reveal any focal deficits. SKIN: No rashes. no petechiae. - Labs CBC & Chem 7: 02/24/23 16:31 02/21/23 20:16 Labs: Abnormal Lab Results - Last 24 Hours (Table) 02/24/23 02/24/23 02/24/23 Range/Units 16:31 16:42 21:04 RBC 3.32 L (3.80-5.40) m/uL Hgb 10.0 L D (11.4-16.0) gm/dL Hct 30.1 L (34.0-46.0) % POC Glucose (mg/dL) 186 H 152 H (70-110) mg/dL 02/25/23 02/25/23 Range/Units 05:42 11:26 RBC (3.80-5.40) m/uL Hgb (11.4-16.0) gm/dL Hct (34.0-46.0) % POC Glucose (mg/dL) 141 H 220 H (70-110) mg/dL Assessment and Plan Assessment: Fall without feeling dizzy acute Left intertrochanteric fracture with displacement , secondary to above, status post left hip cephalomedullary nail on 02/22 Diabetes mellitus Hypertension Chronic heart murmur History of of 1 antitrypsin deficiency Obesity with BMI of 41.1 Mild postoperative anemia, expected Plan: Continue with supportive care Continue with pain management as per primary team Plan for subacute rehab upon discharge Labs and medication were reviewed.. Continue same treatment. Continue with symptomatic treatment. Resume home medication. Monitor labs and vitals. DVT and GI prophylaxis. Further recommendations as per clinical course of the patient DVT prophylaxis: Deferred to surgery team GI Prophylaxis: Pepcid Patient currently medically stable Thank you for consulting us we will follow up
--- NOTE | 2023-02-27 08:10 | P.PN ---
Subjective This is a pleasant 62 years old female with past medical history of diabetes mellitus, hypertension, heart murmur, alpha-1 antitrypsin deficiency for which she receives weekly infusion and history of emphysema Patient said that she was walking in the portal area which was worse when her feet slipped and fell on her left side followed by severe pain in the left hip area She denies chest pain or dyspnea, she denies coughing, no change in urine or bowel habits, no abdominal pain or vomiting. No weakness numbness or headache or dizziness. She denies smoking alcohol or illicit drug. She states she has history of emphysema and alpha-1 antitrypsin deficiency and she follows up with Dr. Waterman She denies any respiratory symptoms currently. 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 Does not use inhaler. No recent history of cardiac disease or renal disease. Her father has atrial fibrillation No other liver thyroid disease, no history of ulcer disease or GERD She is hemodynamically stable Vitals are unremarkable Labs reviewed she has mild leukocytosis of 11.3, risks of CBC, INR, BMP and liver enzymes were unremarkable Glucose control, troponin negative. Chest x-ray: No acute process, no mass or consolidation. I reviewed the chest x-ray by myself EKG showing normal sinus rhythm at [address]-T changes and QTC 431 left hip xr: intertrochanteric fracture with displacement 02/23/2023 She is status post hip surgery and she is doing well and pain is controlled No specific complaints no chest pain dyspnea or urinary or bowel complaints She remains with conservative management with pain control with [place] and other pain medication addressed by primary team She is also on DVT prophylaxis per primary team aspirin 81 mg twice daily She has mild leukocytosis which is most likely reactive with no signs of infect ion, no need for antibiotics for now The globe an A1c 6.5% and labs including BMP and LFTs were reviewed and basically are unremarkable. Plan for her to go home versus rehab on Friday. 02/24/2023 patient denies any specific complaints. No chest pain no dyspnea Does not have bowel movement but she wants to wait: Does not want more laxative, already provided in the morning by the primary team Postop anemia is mild at 10 which is expected Plan for discharge possibly tomorrow either home versus rehab 02/25/2023 Patient denies chest pain or dyspnea She has some constipation that she declines more stool softener for, which is already provided. No urinary complaints. No other new complaints. Hemodynamically stable. However patient is still complaining of from pain at the hip area and she's been evaluated by physical therapist and the recommended subacute rehab upon discharge, patient feels the same she needs to go to rehab first 02/26/2023 No new complaint Vitals are stable Patient medically stable Pending prior authorization for patient to go to rehab, social media job titles on the case Objective - Vital Signs Vital signs: Vital Signs Temp 98.0 F 02/26/23 14:00 Pulse 66 02/26/23 14:00 Resp 16 02/26/23 14:00 BP 106/62 02/26/23 14:00 Pulse Ox 98 02/26/23 14:00 FiO2 Intake & Output 02/25/23 02/26/23 02/26/23 18:59 06:59 18:59 Intake Total 350 Balance 350 Intake: Oral 350 Other: # Voids 1 1 - Exam GENERAL: The patient is alert and oriented x3, not in any acute distress. Well developed, well nourished. HEENT: Pupils are round and equally reacting to light. EOMI. No scleral icterus. No conjunctival pallor. Normocephalic, atraumatic. No pharyngeal erythema. No thyromegaly. CARDIOVASCULAR: S1 and S2 present. No murmurs, rubs, or gallops. PULMONARY: Chest is clear to auscultation, no wheezing , no crackles. ABDOMEN: Soft, nontender, nondistended, normoactive bowel sounds. No palpable organomegaly. MUSCULOSKELETAL: No joint swelling or deformity. -EXTREMITIES: No cyanosis, clubbing, or pedal edema. Left hip wound with recent plane, rest of exam is deferred to surgery team NEUROLOGICAL: Gross neurological examination did not reveal any focal deficits. SKIN: No rashes. no petechiae. - Labs CBC & Chem 7: 02/24/23 16:31 02/21/23 20:16 Labs: Abnormal Lab Results - Last 24 Hours (Table) 02/25/23 02/25/23 02/26/23 Range/Units 16:34 20:28 05:59 POC Glucose (mg/dL) 153 H 162 H 137 H (70-110) mg/dL 02/26/23 Range/Units 11:21 POC Glucose (mg/dL) 197 H (70-110) mg/dL Assessment and Plan Assessment: Fall without feeling dizzy acute Left intertrochanteric fracture with displacement , secondary to above, status post left hip cephalomedullary nail on 02/22 Diabetes mellitus Hypertension Chronic heart murmur History of of 1 antitrypsin deficiency Obesity with BMI of 41.1 Mild postoperative anemia, expected Plan: Continue with supportive care Continue with pain management as per primary team Plan for subacute rehab upon discharge Labs and medication were reviewed.. Continue same treatment. Continue with symptomatic treatment. Resume home medication. Monitor labs and vitals. DVT and GI prophylaxis. Further recommendations as per clinical course of the patient DVT prophylaxis: Deferred to surgery team GI Prophylaxis: Pepcid Patient currently medically stable Thank you for consulting us we will follow up
[2023-02-27] MEDS: ASPIRIN 81 MG PO SCH ×2 (08:20→20:30)
[2023-02-27] MEDS: ESCITALOPRAM 10 MG TAB PO SCH (08:20)
[2023-02-27] MEDS: LOSARTAN-HCTZ 50-12.5 MG 1 EACH TAB PO SCH (08:20)
[2023-02-27] MEDS: PIOGLITAZONE 45 MG TAB PO SCH (08:20)
--- NOTE | 2023-02-27 08:52 | P.DS ---
Providers Date of admission: 02/21/23 21:34 Expected date of discharge: 02/27/23 Attending physician: Cathi Sagastume DO Consults: 02/21/23 21:34 Consult Physician Routine Consulting Provider: Earnestine Hope Consult Reason/Comments: clearance Do you want consulting provider notified?: Yes Primary care physician: Stephany Kaur - Discharge Diagnosis(es) (1) Status post hip surgery Current Visit: Yes Status: Acute (2) Closed left hip fracture Current Visit: Yes Status: Acute (3) Fall Current Visit: Yes Status: Acute Hospital Course: This is a 62 year old female who presented to the hospital post fall and sustained a left hip fracture. The patient was cleared by medicine for surgery. The patient underwent a left hip IT nail on 02/22/[address] Sagastume. The proc edure was performed without complication or sequelae. The patient is doing well postoperatively. Labs and vital signs are stable on the day of discharge. On the day of discharge the patient's hip incision is healing well. There is minimal erythema. There is no drainage noted at this time. There is minimal soft tissue swelling to the hip and thigh. The patient has full foot and ankle motion without difficulty or pain. Neurovascular status to the left lower extremity is intact. The patient is discharged to skilled rehab in good condition. See medication reconciliation for accurate list of discharge medications. Pertinent Studies: Laboratory Tests 02/24/23 02/27/23 16:31 05:55 WBC 8.9 RBC 3.32 L Hct 30.1 L POC Glucose (mg/dL) 114 H Patient Condition at Discharge: Stable Plan - Discharge Summary Discharge Rx Participant: Yes New Discharge Prescriptions: New Aspirin [Adult Low Dose Aspirin EC] 81 mg PO BID #1 tab diazePAM [Valium] 2 mg PO Q8HR PRN #12 tab PRN Reason: Spasms HYDROcodone/APAP 7.5-325MG [[place] 7.5-325] 1 - 2 tab PO Q6HR PRN #32 tab PRN Reason: Pain Sennosides-Docusate Sodium [Senokot-S] 1 tab PO BID #60 tablet No Action Pioglitazone [Actos] 45 mg PO DAILY Tirzepatide [Mounjaro] 7.5 mg SQ RAE Prolastin-C 1,000 Mg (+-)/20 Ml Solution 1 dose IV WE Omalizumab [Xolair] 75 mg SQ Q14D Losartan-Hctz 50-12.5 mg [Hyzaar 50-12.5] 1 tab PO DAILY Escitalopram [Lexapro] 10 mg PO DAILY EPINEPHrine (Auto Inject) [Epipen] 0.3 mg IM ONCE PRN PRN Reason: Anaphylaxis Albuterol Inhaler [Ventolin Hfa Inhaler] 1 - 2 puff INHALATION RT-Q6H PRN PRN Reason: Shortness Of Breath Omalizumab [Xolair] 150 mg SQ Q14D Discharge Medication List Albuterol Inhaler [Ventolin Hfa Inhaler] 1 - 2 puff INHALATION RT-Q6H PRN 02/21/23 [History] EPINEPHrine (Auto Inject) [Epipen] 0.3 mg IM ONCE PRN 02/21/23 [History] Escitalopram [Lexapro] 10 mg PO DAILY 02/21/23 [History] Losartan-Hctz 50-12.5 mg [Hyzaar 50-12.5] 1 tab PO DAILY 02/21/23 [History] Omalizumab [Xolair] 75 mg SQ Q14D 02/21/23 [History] Omalizumab [Xolair] 150 mg SQ Q14D 02/21/23 [History] Pioglitazone [Actos] 45 mg PO DAILY 02/21/23 [History] Prolastin-C 1,000 Mg (+-)/20 Ml Solution 1 dose IV WE 02/21/23 [History] Tirzepatide [Mounjaro] 7.5 mg SQ RAE 02/21/23 [History] Aspirin [Adult Low Dose Aspirin EC] 81 mg PO BID #1 tab 02/24/23 [Rx] HYDROcodone/APAP 7.5-325MG [[place] 7.5-325] 1 - 2 tab PO Q6HR PRN #32 tab 02/24/23 [Rx] Sennosides-Docusate Sodium [Senokot-S] 1 tab PO BID #60 tablet 02/24/23 [Rx] diazePAM [Valium] 2 mg PO Q8HR PRN #12 tab 02/24/23 [Rx] Follow up Appointment(s)/Referral(s): Cathi Sagastume DO [Doctor of Osteopathic Medicine] - 2 Weeks Stephany Kaur MD [Primary Care Provider] - 1-2 days Activity/Diet/Wound Care/Special Instructions: Weightbearing as tolerated with a walker Aspirin 81 mg twice daily Keep incision clean and dry May removed dressings on hip 7 days after surgery unless saturated. May shower over incision without covering. Follow up in [address] [facility] [phone] with questions or concerns Discharge Disposition: TRANSFER TO SNF/ECF
[2023-02-27 11:26] LABS: Glucose,Whole Blood 190 mg/dL (70-110)
[2023-02-27 13:49] VITALS: BMI 41.0
[2023-02-27 16:46] LABS: Glucose,Whole Blood 162 mg/dL (70-110)
[2023-02-27 19:43] LABS: Glucose,Whole Blood 170 mg/dL (70-110)
[2023-02-27] MEDS: SENNOSIDES-DOCUSATE SODIUM 1 EACH TAB PO SCH (20:30)
--- NOTE | 2023-02-27 22:29 | P.PN ---
Subjective Progress Note Date: 02/27/23 Patient is evaluated today sitting up in the chair. Postoperative left hip replacement. Reports minimal pain today. No other acute complaints. Patient blood pressure on the lower side in 100s systolic. Recommending to remain off blood pressure medication and monitor. She states she has been running lower at home and has not been taking her medication. Will be discontinued on discharge. Plan is for DC today to subacute rehab and medically she is cleared. Review of Systems Constitutional: Denied any fatigue denied any fever. Cardio vascular: denied any chest pain, palpitations Gastrointestinal: denied any nausea, vomiting, diarrhea Pulmonary: Denied any shortness of breath cough Neurologic denied any new focal deficits All inpatient medications were reviewed and appropriate changes in these med ications as dictated in the interval history and assessment and plan PHYSICAL EXAMINATION: GENERAL: The patient is alert and oriented x3, not in any acute distress. Well developed, well nourished. HEENT: Pupils are round and equally reacting to light. EOMI. No scleral icterus. No conjunctival pallor. Normocephalic, atraumatic. No pharyngeal erythema. No thyromegaly. CARDIOVASCULAR: S1 and S2 present. No murmurs, rubs, or gallops. PULMONARY: Chest is clear to auscultation, no wheezing or crackles. ABDOMEN: Soft, nontender, nondistended, normoactive bowel sounds. No palpable organomegaly. MUSCULOSKELETAL: No joint swelling or deformity. EXTREMITIES: No cyanosis, clubbing, or pedal edema. NEUROLOGICAL: Gross neurological examination did not reveal any focal deficits. SKIN: No rashes. Assessment Fall without feeling dizzy acute Left intertrochanteric fracture with displacement , secondary to above, status post left hip cephalomedullary nail on 02/22 Diabetes mellitus Hypertension Chronic heart murmur History of of 1 antitrypsin deficiency Obesity with BMI of 41.1 Mild postoperative anemia, expected GI prophylaxis DVT prophylaxis on Aspirin BID per orthopedics Plan Continue with supportive care Continue with pain management as per primary team Plan for subacute rehab upon discharge Recommending to hold BP medication on discharge Encouaraged to continue with IS and patient will continue on bowel regimen on discharge. Orthopedics recommending aspirin 81 mg BID for 30 days and after patient to resume her usual dose of aspirin 81 mg daily. Cleared medically for discharge Thank you for this consultation The impression and plan of care has been dictated by Charley Stack, Nurse Practitioner as directed. Dr. Inés MD I have performed a history and physical examination and medical decision making of this patient, discussed the same with the dictator, and agree with the dictators assessment and plan as written, documented as a scribe. Based on total visit time, I have performed more than 50% of this visit. Objective - Vital Signs Vital signs: Vital Signs Temp 98.2 F 02/27/23 06:51 Pulse 64 02/27/23 06:51 Resp 16 02/27/23 06:51 BP 106/45 02/27/23 06:51 Pulse Ox 96 02/27/23 06:51 FiO2 Intake & Output 02/26/23 02/27/23 02/27/23 18:59 06:59 18:59 Intake Total 750 Balance 750 Intake: Oral 750 Other: # Voids 3 1 # Bowel Movements 1 - Labs CBC & Chem 7: 02/24/23 16:31 02/21/23 20:16 Labs: Abnormal Lab Results - Last 24 Hours (Table) 02/26/23 02/26/23 02/26/23 Range/Units 11:21 16:35 20:06 POC Glucose (mg/dL) 197 H 175 H 189 H (70-110) mg/dL 02/27/23 Range/Units 05:55 POC Glucose (mg/dL) 114 H (70-110) mg/dL Assessment and Plan Time with Patient: Less than 30
[2023-02-28 06:06] LABS: Glucose,Whole Blood 122 mg/dL (70-110)
[2023-02-28] MEDS: INSULIN ASPART (NovoLOG) 100 UNIT/ML VIAL SQ SCH ×2 (06:10→12:06)
[2023-02-28] MEDS: HYDROcodone/APAP 7.5-325MG 1 EACH TAB PO PRN ×2 (06:12→12:07)
[2023-02-28] MEDS: diazePAM 5 MG TAB PO PRN (06:12)
[2023-02-28] MEDS: PANTOPRAZOLE 40 MG TABLET PO SCH (06:12)
[2023-02-28 07:26] VITALS: BP 131/69; PULSE 67; RESP 17; TEMP 98.2
--- NOTE | 2023-02-28 08:39 | P.DS ---
Providers Date of admission: 02/21/23 21:34 Expected date of discharge: 02/28/23 Attending physician: Cathi Sagastume DO Consults: 02/21/23 21:34 Consult Physician Routine Consulting Provider: Earnestine Hope Consult Reason/Comments: clearance Do you want consulting provider notified?: Yes Primary care physician: Stephany Kaur - Discharge Diagnosis(es) (1) Status post hip surgery Current Visit: Yes Status: Acute (2) Closed left hip fracture Current Visit: Yes Status: Acute (3) Fall Current Visit: Yes Status: Acute Hospital Course: This is a 62 year old female who presented to the hospital post fall and sustained a left hip fracture. The patient was cleared by medicine for surgery. The patient underwent a left hip IT nail on 02/22/[address] Sagastume. The proc edure was performed without complication or sequelae. The patient is doing well postoperatively. Labs and vital signs are stable on the day of discharge. On the day of discharge the patient's hip incision is healing well. There is minimal erythema. There is no drainage noted at this time. There is minimal soft tissue swelling to the hip and thigh. The patient has full foot and ankle motion without difficulty or pain. Neurovascular status to the left lower extremity is intact. The patient is discharged to skilled rehab in good condition. See medication reconciliation for accurate list of discharge medications. Pertinent Studies: Laboratory Tests 02/24/23 02/26/23 16:31 16:35 WBC 8.9 RBC 3.32 L Hgb 10.0 L D Hct 30.1 L POC Glucose (mg/dL) 175 H Patient Condition at Discharge: Stable Plan - Discharge Summary Discharge Rx Participant: Yes New Discharge Prescriptions: New Aspirin [Adult Low Dose Aspirin EC] 81 mg PO BID #1 tab diazePAM [Valium] 2 mg PO Q8HR PRN #12 tab PRN Reason: Spasms HYDROcodone/APAP 7.5-325MG [[place] 7.5-325] 1 - 2 tab PO Q6HR PRN #32 tab PRN Reason: Pain Sennosides-Docusate Sodium [Senokot-S] 1 tab PO BID #60 tablet Continue Pioglitazone [Actos] 45 mg PO DAILY Tirzepatide [Mounjaro] 7.5 mg SQ RAE Prolastin-C 1,000 Mg (+-)/20 Ml Solution 1 dose IV WE Omalizumab [Xolair] 75 mg SQ Q14D Escitalopram [Lexapro] 10 mg PO DAILY EPINEPHrine (Auto Inject) [Epipen] 0.3 mg IM ONCE PRN PRN Reason: Anaphylaxis Albuterol Inhaler [Ventolin Hfa Inhaler] 1 - 2 puff INHALATION RT-Q6H PRN PRN Reason: Shortness Of Breath Omalizumab [Xolair] 150 mg SQ Q14D Discontinued Losartan-Hctz 50-12.5 mg [Hyzaar 50-12.5] 1 tab PO DAILY Discharge Medication List Albuterol Inhaler [Ventolin Hfa Inhaler] 1 - 2 puff INHALATION RT-Q6H PRN 02/21/23 [History] EPINEPHrine (Auto Inject) [Epipen] 0.3 mg IM ONCE PRN 02/21/23 [History] Escitalopram [Lexapro] 10 mg PO DAILY 02/21/23 [History] Omalizumab [Xolair] 75 mg SQ Q14D 02/21/23 [History] Omalizumab [Xolair] 150 mg SQ Q14D 02/21/23 [History] Pioglitazone [Actos] 45 mg PO DAILY 02/21/23 [History] Prolastin-C 1,000 Mg (+-)/20 Ml Solution 1 dose IV WE 02/21/23 [History] Tirzepatide [Mounjaro] 7.5 mg SQ RAE 02/21/23 [History] Aspirin [Adult Low Dose Aspirin EC] 81 mg PO BID #1 tab 02/24/23 [Rx] HYDROcodone/APAP 7.5-325MG [[place] 7.5-325] 1 - 2 tab PO Q6HR PRN #32 tab 02/24/23 [Rx] Sennosides-Docusate Sodium [Senokot-S] 1 tab PO BID #60 tablet 02/24/23 [Rx] diazePAM [Valium] 2 mg PO Q8HR PRN #12 tab 02/24/23 [Rx] Follow up Appointment(s)/Referral(s): Cathi Sagastume DO [Doctor of Osteopathic Medicine] - 03/07/23 10:30 am (with Stephanie ) Stephany Kaur MD [Primary Care Provider] - 1-2 days Activity/Diet/Wound Care/Special Instructions: Weightbearing as tolerated with a walker Aspirin 81 mg twice daily Keep incision clean and dry May removed dressings on hip 7 days after surgery unless saturated. May shower over incision without covering. Follow up in [address] [facility] [phone] with questions or concerns Hold losartan hydrochlorothiazide combination on DC and recommend to monitor BP and can resume when systolic above 120-130s. This is to avoid hypotension. Blood pressure is currently low/normal. Discharge Disposition: TRANSFER TO SNF/ECF
[2023-02-28] MEDS: PIOGLITAZONE 45 MG TAB PO SCH (10:01)
[2023-02-28] MEDS: ASPIRIN 81 MG PO SCH (10:01)
[2023-02-28] MEDS: ESCITALOPRAM 10 MG TAB PO SCH (10:01)
[2023-02-28 11:15] LABS: Glucose,Whole Blood 151 mg/dL (70-110)
--- NOTE | 2023-03-01 17:32 | P.PN ---
Subjective Progress Note Date: 02/28/23 Patient is evaluated today sitting up in the chair. Postoperative left hip replacement. Reports minimal pain today. No other acute complaints. Patient blood pressure on the lower side in 100s systolic. Recommending to remain off blood pressure medication and monitor. She states she has been running lower at home and has not been taking her medication. Will be discontinued on discharge. Plan is for DC today to subacute rehab and medically she is cleared. 02/28/2023 Patient recommended for discharge to subacute rehab today auth is obtained. No acute complaints. BP better 118/74. Review of Systems Constitutional: Denied any fatigue denied any fever. Cardio vascular: denied any chest pain, palpitations Gastrointestinal: denied any nausea, vomiting, diarrhea Pulmonary: Denied any shortness of breath cough Neurologic denied any new focal deficits All inpatient medications were reviewed and appropriate changes in these medications as dictated in the interval history and assessment and plan PHYSICAL EXAMINATION: GENERAL: The patient is alert and oriented x3, not in any acute distress. Well developed, well nourished. HEENT: Pupils are round and equally reacting to light. EOMI. No scleral icterus. No conjunctival pallor. Normocephalic, atraumatic. No pharyngeal erythema. No thyromegaly. CARDIOVASCULAR: S1 and S2 present. No murmurs, rubs, or gallops. PULMONARY: Chest is clear to auscultation, no wheezing or crackles. ABDOMEN: Soft, nontender, nondistended, normoactive bowel sounds. No palpable organomegaly. MUSCULOSKELETAL: No joint swelling or deformity. EXTREMITIES: No cyanosis, clubbing, or pedal edema. NEUROLOGICAL: Gross neurological examination did not reveal any focal deficits. SKIN: No rashes. Assessment Fall without feeling dizzy acute Left intertrochanteric fracture with displacement , secondary to above, status post left hip cephalomedullary nail on 02/22 Diabetes mellitus Hypertension Chronic heart murmur History of of 1 antitrypsin deficiency Obesity with BMI of 41.1 Mild postoperative anemia, expected GI prophylaxis DVT prophylaxis on Aspirin BID per orthopedics Plan Continue with supportive care Continue with pain management as per primary team Plan for subacute rehab upon discharge Recommending to hold BP medication on discharge Encouaraged to continue with IS and patient will continue on bowel regimen on discharge. Orthopedics recommending aspirin 81 mg BID for 30 days and after patient to resume her usual dose of aspirin 81 mg daily. Cleared medically for discharge Thank you for this consultation The impression and plan of care has been dictated by Charley Stack Nurse Practitioner as directed. Dr. Inés MD I have performed a history and physical examination and medical decision making of this patient, discussed the same with the dictator, and agree with the dictators assessment and plan as written, documented as a scribe. Based on total visit time, I have performed more than 50% of this visit. Objective - Vital Signs Vital signs: Vital Signs Temp 98.2 F 02/28/23 06:48 Pulse 67 02/28/23 06:48 Resp 17 02/28/23 06:48 BP 131/69 02/28/23 06:48 Pulse Ox 96 02/28/23 06:48 FiO2 Intake & Output 02/27/23 02/28/23 02/28/23 18:59 06:59 18:59 Weight 122.47 kg Other: Voiding Method Toilet # Voids 2 # Bowel Movements 1 - Labs CBC & Chem 7: 02/24/23 16:31 02/21/23 20:16 Labs: Abnormal Lab Results - Last 24 Hours (Table) 02/27/23 02/27/23 02/28/23 Range/Units 16:45 19:41 06:04 POC Glucose (mg/dL) 162 H 170 H 122 H (70-110) mg/dL 02/28/23 Range/Units 11:14 POC Glucose (mg/dL) 151 H (70-110) mg/dL Assessment and Plan Time with Patient: Less than 30
== END 2023-02-28 13:53 | DRG 481 ==
LOC: EC 18:21 → 4SSUR 21:34
PROVIDERS: ADMIT Orthopaedic Surgery Hand Surgery; ATTEND Orthopaedic Surgery Hand Surgery
PROC: 0QS736Z Reposition Left Upper Femur with Intramedullary Internal Fixation Device, Percutaneous Approach (ICD-10-PCS; principal; 2023-02-22 08:20)
DX: S72.142A Displaced intertrochanteric fracture of left femur, initial encounter for closed fracture (principal); Z68.41 Body mass index [BMI] 40.0-44.9, adult; W01.0XXA Fall on same level from slipping, tripping and stumbling without subsequent striking against object, initial encounter; Y93.11 Activity, swimming; Y92.59 Other trade areas as the place of occurrence of the external cause; E66.9 Obesity, unspecified; E11.9 Type 2 diabetes mellitus without complications; K59.00 Constipation, unspecified; J43.9 Emphysema, unspecified; I10 Essential (primary) hypertension; D64.89 Other specified anemias; Z79.82 Long term (current) use of aspirin; Z79.84 Long term (current) use of oral hypoglycemic drugs; Z79.899 Other long term (current) drug therapy; Z82.49 Family history of ischemic heart disease and other diseases of the circulatory system; Z83.3 Family history of diabetes mellitus; Z91.148 Patient's other noncompliance with medication regimen for other reason; Z28.21 Immunization not carried out because of patient refusal
CPT/HCPCS: 36415; 71045; 73502; 80053; 81001; 83036; 83735; 84100; 84484; 85025; 85610; 85730; 93005; 94760; 96361; 96374; 96376; 99285

== ENCOUNTER → 2023-06-02 | Outpatient (CLI) | payer BC ==
--- NOTE | 2023-06-03 12:49 | MM ---
Reason for Exam: Screening (asymptomatic). Last mammogram was performed 1 year(s) and 3 month(s) ago. Patient History: Menarche at age 11. First Full-Term at age 20. Postmenopausal. Maternal aunt had breast cancer, age 45. Risk Values: Kyra 5 year model risk: 1.4%. NCI Lifetime model risk: 6.0%. Prior Study Comparison: 02/22/2020 Bilateral Diagnostic Mammogram, [facility]. 02/28/2021 Bilateral Screening Mammogram, [facility]. 03/14/2022 Bilateral MG 3D screening mammo w/cad, [facility]. Tissue Density: The breasts are heterogeneously dense, which may obscure small masses. Findings: Analyzed By CAD. There is no suspicious group of microcalcifications or new suspicious mass in either breast. Overall Assessment: Benign, BI-RAD 2 Management: Screening Mammogram of both breasts in 1 year. . Patient should continue monthly self-breast exams. A clinical breast exam by your physician is recommended on an annual basis. This exam should not preclude additional follow-up of suspicious palpable abnormalities. Note on Kyra scores and lifetime risk: 1. A Kyra score greater than 3% is considered moderate risk. If this is the case, consider specialist referral to assess eligibility for a risk reducing agent. 2. If overall lifetime risk for the development of breast cancer is 20% or higher, the patient may qualify for future screening with alternating mammogram and breast MRI. Electronically signed and approved by: Vladimir Rahman M.D. Radiologis
== END | disposition home or self-care (01) ==
LOC: RADMAMWWP 11:29
PROVIDERS: ATTEND Internal Medicine
DX: Z12.31 Encounter for screening mammogram for malignant neoplasm of breast (principal); Z78.0 Asymptomatic menopausal state; Z80.3 Family history of malignant neoplasm of breast
CPT/HCPCS: 77063; 77067

== ENCOUNTER → 2024-08-24 | Outpatient (CLI) | payer MEDICARE ==
--- NOTE | 2024-08-24 07:34 | US ---
EXAMINATION TYPE: US abdomen complete DATE OF EXAM: 08/24/2024 COMPARISON: NONE CLINICAL INDICATION: Female, 64 years old with history of R10.9 UNSPECIFIED ABD PAIN; Postpranidol pa in with nausea and diarrhea x years; Hx HTN, DM, and appendectomy TECHNIQUE: Grayscale and color Doppler imaging of the abdomen was performed. FINDINGS: EXAM MEASUREMENTS: Liver Length: 13.3 cm Gallbladder Wall: 0.3 cm CBD: 0.4 cm, color Doppler imaging was utilized to isolate the common bile duct for measurement. Spleen: 10.0 cm Right Kidney: 12.7 x 4.9 x 5.1 cm Left Kidney: 13.4 x 5.4 x 5.0 cm PODIATRIST NOTES: Pancreas: wnl Liver: wnl, no dilated ducts, masses or cysts. Gallbladder: wnl Evidence for sonographic Almeida's sign: No CBD: wnl Spleen: wnl Right Kidney: wnl, No hydronephrosis, calculi or masses seen Left Kidney: wnl, No hydronephrosis, calculi or masses seen Upper IVC: wnl Abd Aorta: wnl The liver is homogenous. The intrahepatic portion of the IVC and proximal abdominal aorta are within normal limits. There is no evidence of cholelithiasis. Common bile duct is unremarkable. The visu alized portions of the pancreas are homogenous. The spleen is unremarkable. Kidneys are symmetric a nd free of hydronephrosis. No renal lesions are seen. IMPRESSION: No evidence for acute process. [facility], , 08/24/2024 7:31 AM
== END | disposition home or self-care (01) ==
LOC: RADUSWWP 06:52
PROVIDERS: ATTEND Internal Medicine
DX: R10.9 Unspecified abdominal pain (principal); E11.9 Type 2 diabetes mellitus without complications; I10 Essential (primary) hypertension
CPT/HCPCS: 76700

== ENCOUNTER → 2024-09-17 | Outpatient (CLI) | payer MEDICARE ==
--- NOTE | 2024-09-17 15:22 | MM ---
Reason for Exam: Screening (asymptomatic). Last mammogram was performed 1 year(s) and 3 month(s) ago. Patient History: Menarche at age 11. First Full-Term at age 20. Postmenopausal. Maternal aunt had breast cancer, age 45. Risk Values: Kyra 5 year model risk: 1.5%. NCI Lifetime model risk: 5.6%. Prior Study Comparison: 02/28/2021 Bilateral Screening Mammogram, [facility]. 03/14/2022 Bilateral MG 3D screening mammo w/cad, [facility]. 06/02/2023 Bilateral MG 3D screening mammo w/cad, [facility]. Tissue Density: The breasts are heterogeneously dense, which may obscure small masses. Findings: Analyzed By CAD. Right breast: There is no suspicious group of microcalcifications or new suspicious mass. Benign-appearing calcifications right breast. Left breast: There is no suspicious group of microcalcifications or new suspicious mass. Benign-appearing calcifications left breast. Overall Assessment: Benign, BI-RAD 2 Management: Screening Mammogram of both breasts in [address] [facility] will attempt to contact patient to return for supplemental views and ultrasound if indicated. Patient should continue monthly self-breast exams. A clinical breast exam by your physician is recommended on an annual basis. This exam should not preclude additional follow-up of suspicious palpable abnormalities. Note on Kyra scores and lifetime risk: 1. A Kyra score greater than 3% is considered moderate risk. If this is the case, consider specialist referral to assess eligibility for a risk reducing agent. 2. If overall lifetime risk for the development of breast cancer is 20% or higher, the patient may qualify for future screening with alternating mammogram and breast MRI. [facility], , 09/17/2024 3:19 PM. Electronically signed and approved by: Dallin Thomas DO
--- NOTE | 2024-09-17 15:28 | BD ---
EXAMINATION TYPE: Axial Bone Density DATE OF EXAM: 09/17/2024 CLINICAL HISTORY: 64 years old Female. ICD-10 CODE: N95.8 MENOPAUSAL , Additional History: Height: 68 Weight: 179.8 FRAX RISK QUESTIONS: Alcohol (3 or more units per day): no Family History (Parent hip fracture): no Glucocorticoids (More than 3mos): no (Ex: prednisone, prednisolone, methylprednisolone, dexamethasone, and hydrocortisone). History of Fracture in Adulthood: yes Secondary Osteoporosis: 1. Type 1 Diabetes: no 2. Hyperthyroidism: no 3. Menopause before 45: no 4. Malnutrition: no 5. Chronic liver disease: yes Rheumatoid Arthritis: no Current Tobacco Use: no RISK FACTORS HISTORY OF: Hip Fracture (Right/Left): left When: 2022 Surgery to Spine/Hip(right/left)/Wrist (right/left): left hip When: 2022 EXAM MEASUREMENTS: Bone mineral densitometry was performed using the [employer]. Bone mineral density as measured about the Lumbar spine is: ----- L1-L4(G/cm2): 1.094 T Score Values are as follows: ----- L1: -0.6 ----- L2: -1.3 ----- L3: -1.1 ----- L4: -0.1 ----- L1-L4: -0.7 Z Score Values are as follows: ----- L1: 0.5 ----- L2: -0.3 ----- L3: -0.1 ----- L4: 0.9 ----- L1-L4: 0.3 Bone mineral density : baseline Bone mineral density about the R hip (g/cm2): 0.865 T Score values are as follows: -----R Neck: 1.6 -----R Total: -1.1 Z Score values are as follows: -----R Neck: -0.5 -----R Total: -0.3 Bone mineral density : baseline FRAX%s: The graph provided illustrates a 15.2% chance for a major osteoporotic fx and a 1.8% chance f or the hips probability for fx in 10 years time. IMPRESSION: Osteopenia (T Score between -2.5 and -1). There is slightly increased risk of fracture and the patient may be considered for treatment. Re-Screen 2-5 years. NOTE: T-SCORE=SD OF THE YOUNG ADULT MEAN. [facility], , 09/17/2024 3:25 PM
== END | disposition home or self-care (01) ==
LOC: RADMAMWWP 13:53
PROVIDERS: ATTEND Internal Medicine
DX: Z12.31 Encounter for screening mammogram for malignant neoplasm of breast (principal); N95.8 Other specified menopausal and perimenopausal disorders; M85.89 Other specified disorders of bone density and structure, multiple sites; R92.333 Mammographic heterogeneous density, bilateral breasts; Z78.0 Asymptomatic menopausal state; Z80.3 Family history of malignant neoplasm of breast; R92.1 Mammographic calcification found on diagnostic imaging of breast
CPT/HCPCS: 77063; 77067; 77080